=== PATIENT | male | born 1960 | race Caucasian/White ===

== ENCOUNTER 2020-08-26 10:08 | Emergency (ER) | payer MEDICARE, SELFPAY ==
[2020-08-26 10:16] VITALS: BP 151/86; PULSE 60; RESP 16; TEMP 36.6; O2SAT 98; BMI 37.1
[2020-08-26 10:19] VITALS: BP 127/85; PULSE 61; RESP 18; O2SAT 98
[2020-08-26 10:49] LABS: Basophils # 0.1 10^3/uL (0.0-0.1); Basophils % 0.7 %; Eosinophils # 0.2 10^3/uL (0.0-0.8); Eosinophils % 2.4 %; Hematocrit 46.1 % (42.0-52.0); Hemoglobin 15.9 g/dL (11.7-16.6); Lymphocytes # 1.6 10^3/uL (0.8-4.8); Lymphocytes % 20.3 %; Mean Corpuscular HGB Conc 34.5 g/dL (30.0-36.0); Mean Corpuscular Hemoglobin 32.3 pg (28.0-34.0); Mean Corpuscular Volume 93.5 fL (80-94); Mean Platelet Volume 10.1 fL (7.4-10.4); Monocytes # 0.5 10^3/uL (0.2-0.9); Monocytes % 6.6 %; Neutrophils % 69.5 %; Nucleated Red Blood Cells % 0 %; Platelet Count 224 10^3/cmm (130-400); Red Blood Count 4.93 10^6/uL (4.1-5.3); Red Cell Distribution Width 12.3 % (12.1-15.1); White Blood Count 7.6 10^3/uL (4.0-10.0)
[2020-08-26 10:54] LABS: Add Urine Microscopic? NO
[2020-08-26] MEDS: sodium chloride 0.9% 1,000 ML 999 ML IV (11:02)
[2020-08-26 11:03] LABS: Bilirubin Urine Neg (Negative); Blood Urine Neg (Negative); Glucose Urine UA Norm (Normal); Ketones Urine Negative (Negative); Leukocyte Esterase Urine Negative (Negative); Nitrate Urine Negative (Negative); Protein Urine Neg (Negative); Urine Appearance Clear (CLEAR); Urine Color Yellow (Yellow); Urobilinogen Urine Neg (Negative); pH Urine 6 (5-7)
[2020-08-26 11:17] LABS: Alanine Aminotransferase 63 U/L (0-41); Albumin Level 4.1 g/dL (3.5-5.2); Alkaline Phosphatase 88 IU/L (40-130); Anion Gap 14.3 (5-19); Aspartate Amino Transferase 33 U/L (0-40); Blood Urea Nitrogen 20 mg/dL (8-23); Calcium 9.4 mg/dL (8.5-10.5); Carbon Dioxide 26 mmol/L (22-29); Chloride 102 mmol/L (98-107); Globulin 2.7 g/dL (1.3-4.6); Glucose 177 mg/dL (65-115); Lipase 20 U/L (13-60); Osmolality Calculated 293 mOsm/kg (285-295); Potassium 4.3 mmol/L (3.5-5.1); Sodium 138 mmol/L (136-145); Total Bilirubin 0.3 mg/dL (0.15-1.2); Total Protein 6.8 g/dL (6.6-8.7)
--- NOTE | 2020-08-26 11:22 | DCPLANNER ---
wind field manager had message to schedule a follow up appointment for patient with general surgery. wind field manager called [facility], spoke with Rebekah, gave clinic patients information. wind field manager was told that patients information would be printed and reviewed. Clinic will call patient with appointment information.
[2020-08-26 11:38] VITALS: BP 163/97; PULSE 59; RESP 18; O2SAT 96
--- NOTE | 2020-08-29 06:08 | W.ED.ABDPA2 ---
HPI - Abdominal Pain General: Chief Complaint: Abdominal Pain Stated Complaint: ABDOMEN PAIN,SIDE PAIN Time Seen by Provider: 08/26/20 10:21 History of Present Illness: HPI narrative: 60-year-old male comes in complaining of enlarging umbilical hernia. He has no significant pain from it he is quite concerned because he began to notice it. He denies any nausea vomiting or diarrhea. No other symptoms. MD elicited complaint: other (Patient noted umbilical hernia seem to be enlarging) Pertinent past history: none Onset (ago): unknown Pain Consistency: other (only with manipulation of the hernia) Location: Periumbilical Severity: mild Quality: cramping Radiation: none Migration to: no migration Exacerbating factors: other (manipulation of hernia) Relieving factors: nothing Associated Symptoms: Reports GI cramping; Denies anorexia, belching, bloating, change in bowel habits, change in stool character, chills, coffee ground emesis, constipation, diarrhea, dyspepsia, dysuria, excessive flatus, fever(s), heartburn, hematochezia, hematuria, hematemesis, fecal incontinence, loose stools, melena, nausea, poor appetite, syncope and vomiting Review of Systems Const: Denies: fever(s) or chills ENMT: Denies: throat pain, ear or mastoid pain, nasal discharge or nasal congestion Card: Denies: syncope Resp: Denies: dyspnea, productive cough or non-productive cough GI: Reports: GI cramping; Denies: nausea, vomiting, hematemesis, coffee ground emesis, heartburn, diarrhea, constipation, bloating, belching, excessive flatus, fecal incontinence, change in bowel habits, change in stool character, hematochezia or melena : Denies: dysuria or hematuria Skin/Breast: Denies: rash or pruritus PFSH ED PFSH: Medical History (Updated 08/29/20 @ 06:10 by Doc Jacobo DO) ASHD (arteriosclerotic heart disease) Hepatitis C HTN (hypertension) Hyperlipidemia Hypothyroidism Surgical History (Updated 08/29/20 @ 06:10 by Doc Jacobo DO) S/P PTCA (percutaneous transluminal coronary angioplasty) Family History Other Cancer Social History Smoking and tobacco status: never smoked Physical Exam Const: COMMON NORMALS: no acute distress GENERAL APPEARANCE: cooperative and comfortable ORIENTATION/CONSCIOUSNESS: Yes awake, Yes oriented to person, Yes oriented to place and Yes oriented to time HENMT: COMMON NORMALS: normocephalic, atraumatic, hearing grossly normal bilaterally, external ears normal, EAC's normal, TM's normal bilaterally, Normal nasal mucous membranes and turbinates present, moist oral mucous membranes and oropharynx normal HEAD & SCALP: normocephalic and atraumatic NOSE: Normal nasal mucous membranes and turbinates present EXTERNAL EAR: Yes external ears normal EXTERNAL AUDITORY CANAL: EAC's normal TYMPANIC MEMBRANE: TM's normal bilaterally Neck/C-Spine: COMMON NORMALS: no JVD Lymph: LYMPHATIC: no lymphadenopathy noted and no lymphedema noted Resp: COMMON NORMALS: normal respiratory effort, No retractions, No use of accessory muscles and clear to auscultation bilaterally AUSCULTATION: clear to auscultation bilaterally Cardio: COMMON NORMALS: no JVD, regular rate, regular rhythm and No murmurs present (Cardio) RATE: regular rate RHYTHM: regular rhythm GI: COMMON NORMALS: Soft to palpation and No hepatosplenomegaly present AUSCULTATION: Yes normoactive bowel sounds PALPATION: Yes Soft to palpation, No Tenderness to palpation present (GI), No Guarding due to palpation present (GI) and Yes No hepatosplenomegaly present OTHER: Moderate sized umbilical hernia easily reduced minimal discomfort with reduction recurs with Valsalva. Questionable right inguinal hernia patient has discomfort there but I cannot palpate a hernia inguinal ring does seem to be somewhat loose but no intra-abdominal contents within the inguinal ring Extremity: COMMON NORMALS: normal to inspection, capillary refill normal, no clubbing, cyanosis or edema, no calf tenderness and no pedal edema Neuro: SENSORIUM/ORIENTATION: Yes oriented to person, Yes oriented to place and Yes oriented to time Skin: COMMON NORMALS: no rashes or lesions noted GENERAL SKIN EXAM: no rashes or lesions noted Course Vital Signs: Vital signs: Vital Signs Temperature 97.9 F 08/26/20 10:16 Pulse Rate 59 L 08/26/20 11:38 Respiratory Rate 18 08/26/20 11:38 Blood Pressure 163/97 08/26/20 11:38 Pulse Oximetry 96 08/26/20 11:38 MDM - Abdominal Pain MDM Narrative: Medical decision making narrative: Discharged home no significant exam finding. All of his discomfort resolves around the umbilical hernia which is easily reducible referred to general surgery for evaluation and possible repair electively. Lab Data: Labs: Lab Results 08/26/20 08/26/20 08/26/20 Range/Units 10:42 10:42 10:46 WBC 7.6 (4.0-10.0) 10^3/ uL RBC 4.93 (4.1-5.3) 10^6/u L Hgb 15.9 (11.7-16.6) g/dL Hct 46.1 (42.0-52.0) % MCV 93.5 (80-94) fL MCH 32.3 (28.0-34.0) pg MCHC 34.5 (30.0-36.0) g/dL RDW 12.3 (12.1-15.1) % Plt Count 224 (130-400) 10^3/c mm MPV 10.1 (7.4-10.4) fL Neut % (Auto) 69.5 % Lymph % (Auto) 20.3 % [place] % (Auto) 6.6 % Eos % (Auto) 2.4 % Baso % (Auto) 0.7 % Neut # (Auto) 5.30 (1.8-7.7) 10^3/u L Lymph # (Auto) 1.6 (0.8-4.8) 10^3/u L [place] # (Auto) 0.5 (0.2-0.9) 10^3/u L Eos # (Auto) 0.2 (0.0-0.8) 10^3/u L Baso # (Auto) 0.1 (0.0-0.1) 10^3/u L Nucleated RBC % (a uto) 0 % Nucleated RBCs # 0.0 /100WBC Sodium 138 (136-145) mmol/L Potassium 4.3 (3.5-5.1) mmol/L Chloride 102 (98-107) mmol/L Carbon Dioxide 26 (22-29) mmol/L Anion Gap 14.3 (5-19) BUN 20 (8-23) mg/dL Creatinine 1.0 (0.7-1.2) mg/dL GFR Calculation 76.0 L (90-130) mL/min Glucose 177 H (65-115) mg/dL Calculated Osmolal ity 293 (285-295) mOsm/k g Calcium 9.4 (8.5-10.5) mg/dL Total Bilirubin 0.3 (0.15-1.2) mg/dL AST 33 (0-40) U/L ALT 63 H (0-41) U/L Alkaline Phosphata se 88 (40-130) IU/L Total Protein 6.8 (6.6-8.7) g/dL Albumin 4.1 (3.5-5.2) g/dL Globulin 2.7 (1.3-4.6) g/dL Lipase 20 (13-60) U/L Urine Color Yellow (Yellow) Urine Appearance Clear (CLEAR) Urine pH 6 (5-7) Ur Specific Gravit y 1.020 (1.005-1.030) Urine Protein Neg (Negative) Urine Glucose (UA) Norm (Normal) Urine Ketones Negative (Negative) Urine Blood Neg (Negative) Urine Nitrate Negative (Negative) Urine Bilirubin Neg (Negative) Urine Urobilinogen Neg (Negative) mg/dL Ur Leukocyte Sun ase Negative (Negative) Discharge Plan Discharge Patient Disposition: Home Clinical Impression: Umbilical hernia Condition: Stable Prescriptions: No Action simvastatin 40 mg tablet 40 mg PO DAILY RF: 0 metoprolol tartrate 50 mg tablet 50 mg PO BID RF: 0 lisinopril 40 mg tablet 80 mg PO DAILY RF: 0 clopidogrel 75 mg tablet 75 mg PO DAILY RF: 0 aspirin [Aspir-81] 81 mg tablet,delayed release (DR/EC) 81 mg PO DAILY RF: 0 buspirone 15 mg tablet 7.5 mg PO BID RF: 0 levothyroxine 150 mcg capsule 150 mcg PO DAILY RF: 0 cetirizine 10 mg tablet 10 mg PO DAILY RF: 0 isosorbide mononitrate 30 mg tablet extended release 24 hr 30 mg PO DAILY Qty: 45 RF: 3 amlodipine 5 mg tablet 5 mg PO DAILY Qty: 90 RF: 3 Discharge Orders: Discharge Order (Routine); Ordered 08/26/20 Ordered By: Doc Jacobo Referrals: Leticia Zhao PA [Primary Care Provider] - Discharge Diet: Usual diet Discharge Activity: Limit activity as instructed Activity Restrictions/Additional Instructions: No lifting greater than 10 pounds. Case management will get you an appointment with surgery to evaluate your umbilical hernia and right inguinal hernia. Discharge Date/Time: 08/26/20 11:38 Coding Level of Care Code ED Street Superintendent for Blaine Vo
--- NOTE | 2020-08-30 12:59 | DCPLANNER ---
Patient has a follow up appointment scheduled for Saturday, August at 10:[address] Geronimo. Clinic will call patient with appointment information.
--- NOTE | 2020-09-08 15:02 | DCPLANNER ---
Patient had a follow up appointment scheduled for 09.05.20 with [facility] - patient did attend appointment.
== END 2020-08-26 11:38 | disposition home or self-care (01) ==
PROVIDERS: Emergency Provider Family Medicine; Family Provider Physician Assistant; PCP Physician Assistant
DX: K42.9 Umbilical hernia without obstruction or gangrene (principal); Z79.02 Long term (current) use of antithrombotics/antiplatelets; Z79.82 Long term (current) use of aspirin; Z86.19 Personal history of other infectious and parasitic diseases; I10 Essential (primary) hypertension; E78.5 Hyperlipidemia, unspecified
CPT/HCPCS: 12345; 36415; 80053; 81003; 83690; 85025; 96360; 99283; J7030

== ENCOUNTER 2020-10-03 12:40 | Emergency (ER) | payer MEDICARE, SELFPAY ==
[2020-10-03 12:59] VITALS: BP 143/102; PULSE 118; RESP 15; TEMP 36.7; O2SAT 97; BMI 33.9
[2020-10-03 13:20] LABS: ABG PCO2 36.3 mmHg (35-45); ABG PH Result 7.39 (7.35-7.45); Arterial Blood Gas Hematocrit 54.7 % (42-52); Base Excess ABG -2.7 mmol/L (-2.0-2.0); Blood Gas Allen Test Pos; Blood Gas Operator Identificat CAAK; Blood Gas Sample Site Radial, left; Blood Gas Sample Type Arterial; HCO3 ABG 21.7 mmol/L (22-26); Oxygen Device ROOM AIR; PO2 ABG 75.4 mmHg (80.0-100.0)
[2020-10-03] MEDS: sodium chloride 0.9% 1,000 ML 999 ML IV ×2 (13:28→15:01)
[2020-10-03] MEDS: insulin regular-human 100 units/1 mL 10 UNIT IVP (13:30)
--- NOTE | 2020-10-03 13:34 | W.ED.GENADLT ---
HPI - General Adult General: Chief complaint: General Medical Stated complaint: BLOOD SUGAR 700 Time Seen by Provider: 10/03/20 13:13 Source: patient Mode of arrival: ambulatory Limitations: no limitations History of Present Illness: HPI narrative: Pleasant 60-year-old male patient presents to the emergency department with elevated blood sugar. Patient reports blood sugar at [place] was over 700. Was advised to come to the emergency department for evaluation. He reports 2 to 3-day history of polyuria, polydipsia, states urination every 30 minutes and inability to quench his thirst. He reports 25 pound weight loss over the past 3 months. History of coronary artery disease, hypothyroidism. Onset (ago): day(s) (2-3) Relieving factors: none Exacerbating factors: movement Associated symptoms: Reports decreased appetite, malaise and nausea (on and off x 3 days); Deny chest pain, dyspnea, headache(s), rash, palpitations or vomiting Treatments prior to arrival: none Review of Systems General: Reports: 10 or more systems reviewed and unremarkable except in HPI and below Const: Reports: change in appetite, change in weight, fatigue and malaise; Denies: fever(s), chills or body aches Eyes: Denies: change in vision, blurry vision or eye redness ENMT: Denies: throat pain, dental pain or disequilibrium Card: Denies: chest pain, palpitations, irregular heart rhythm, swelling of feet/ankles or dyspnea on exertion Resp: Denies: dyspnea, productive cough, non-productive cough or wheezing GI: Reports: nausea (on and off x 3 days); Denies: abdominal pain or vomiting : Denies: dysuria Musc: Denies: neck pain, back pain, joint pain or muscle cramps Skin/Breast: Denies: rash or pruritus Neuro: Denies: headache(s), weakness in extremities or behavioral changes Psych: Reports: anxiety and change in appetite; Denies: depression or irritability Bao/Lymph: Denies: easy bruising [facility] ED PFSH: Medical History (Updated 10/03/20 @ 15:07 by CELSO Lacy) ASHD (arteriosclerotic heart disease) Hepatitis C HTN (hypertension) Hyperlipidemia Hypothyroidism Surgical History S/P PTCA (percutaneous transluminal coronary angioplasty) Family History Other Cancer Social History Smoking and tobacco status: never smoked Physical Exam Const: COMMON NORMALS: no acute distress, patient oriented x3, healthy appearing and alert GENERAL APPEARANCE: cooperative, comfortable and well hydrated HENMT: COMMON NORMALS: normocephalic, Normal external nose present and moist oral mucous membranes HEAD & SCALP: normocephalic NOSE: Normal external nose present Eye: COMMON NORMALS: Equal, round and reactive pupils present and EOMs intact bilaterally GENERAL EYE: appearance normal, both eyes and all related structures PUPIL: Yes Equal, round and reactive pupils present Neck/C-Spine: COMMON NORMALS: full ROM and no lymphadenopathy GENERAL: Yes normal visual inspection and Yes trachea midline CERVICAL SPINE: Yes cervical ROM normal Lymph: LYMPHATIC: no lymphadenopathy noted Chest: COMMONS NORMALS: normal inspection of the chest Resp: COMMON NORMALS: normal respiratory effort, No use of accessory muscles and clear to auscultation bilaterally EFFORT & INSPECTION: Yes able to speak in complete sentences AUSCULTATION: clear to auscultation bilaterally Cardio: COMMON NORMALS: regular rhythm, S1 normal heart sound present, S2 normal heart sound present and Peripheral pulses 2+ throughout RHYTHM: regular rhythm HEART SOUNDS: S1 normal heart sound present and S2 normal heart sound present PERIPHERAL PULSES: Peripheral pulses 2+ throughout GI: COMMON NORMALS: Normal to inspection, nondistended, normoactive bowel sounds present, Soft to palpation and non-tender INSPECTION: Yes normal to inspection PALPATION: Yes Soft to palpation : COMMON NORMALS: Yes no CVA tenderness BLADDER/KIDNEY EXAM: Yes no CVA tenderness Back/Pelvis: COMMON NORMALS: no CVA tenderness, thoracic and lumbar spine normal to inspection and no thoracic nor lumbar tenderness Extremity: COMMON NORMALS: normal to inspection and capillary refill normal Neuro: COMMON NORMALS: patient oriented x3 and no focal motor deficits SENSORIUM/ORIENTATION: Yes alert Psych: COMMON NORMALS: mental status grossly normal, Normal thought process present and cooperative ACTIVITY/MOTOR BEHAVIOR: Yes appropriate eye contact THOUGHT PROCESS: Normal thought process present Skin: COMMON NORMALS: no rashes or lesions noted and turgor normal GENERAL SKIN EXAM: no rashes or lesions noted and turgor normal Course ED course: 60-year-old male patient with new onset diabetes presents to the emergency department with blood sugar elevation. Positive serum ketones, blood sugar 591, patient received insulin, 10 units IVP with reduction of glucose to 386. ABG without acidosis. Case discussed with Dr. Brito, will discharge patient home on metformin with appropriate follow-up with his primary care provider in 1 week. He was prescribed glucometer for home monitoring readings. Diabetic diet and diabetic care discussed, 10 minutes of counseling provided. Agrees to return to the emergency department if he develops confusion, abdominal pain or neurological symptoms. Verbalizes understanding, results were discussed and questions were answered. Vital Signs: Vital signs: Vital Signs Temperature 98.0 F 10/03/20 12:59 Pulse Rate 82 10/03/20 16:05 Respiratory Rate 15 10/03/20 12:59 Blood Pressure 158/112 10/03/20 16:05 Pulse Oximetry 97 10/03/20 16:05 MDM - General Adult Lab Data: Labs: Lab Results 10/03/20 10/03/20 10/03/20 Range/Units 13:09 13:20 13:20 WBC 8.8 (4.0-10.0) 10^3/ uL RBC 5.56 H (4.1-5.3) 10^6/u L Hgb 17.6 H (11.7-16.6) g/dL Hct 50.0 (42.0-52.0) % MCV 89.9 (80-94) fL MCH 31.7 (28.0-34.0) pg MCHC 35.2 (30.0-36.0) g/dL RDW 11.7 L (12.1-15.1) % Plt Count 313 (130-400) 10^3/c mm MPV 11.3 H (7.4-10.4) fL Neut % (Auto) 72.2 % Lymph % (Auto) 18.4 % [place] % (Auto) 5.8 % Eos % (Auto) 2.4 % Baso % (Auto) 0.7 % Neut # (Auto) 6.38 (1.8-7.7) 10^3/u L Lymph # (Auto) 1.6 (0.8-4.8) 10^3/u L [place] # (Auto) 0.5 (0.2-0.9) 10^3/u L Eos # (Auto) 0.2 (0.0-0.8) 10^3/u L Baso # (Auto) 0.1 (0.0-0.1) 10^3/u L Nucleated RBC % (a uto) 0 % Nucleated RBCs # 0.0 /100WBC Specimen Type Arterial Sample Site Radial, left ABG pH 7.39 (7.35-7.45) ABG pCO2 36.3 (35-45) mmHg ABG pO2 75.4 L (80.0-100.0) mmH g ABG HCO3 21.7 L (22-26) mmol/L ABG Base Excess -2.7 L (-2.0-2.0) mmol/ L [employer]iste[employer] Test Pos Hematocrit 54.7 H (42-52) % O2 Delivery Device Room air Fabric Designer ID [place] Sodium 132 L (136-145) mmol/L Potassium 4.6 (3.5-5.1) mmol/L Chloride 91 L (98-107) mmol/L Carbon Dioxide 24 (22-29) mmol/L Anion Gap 21.6 H (5-19) BUN 26 H (8-23) mg/dL Creatinine 1.3 H (0.7-1.2) mg/dL GFR Calculation 56.1 L (90-130) mL/min Glucose 591 H* (65-115) mg/dL POC Glucose (70-110) mg/dL Calculated Osmolal ity 306 H (285-295) mOsm/k g Calcium 10.9 H (8.5-10.5) mg/dL Total Bilirubin 0.4 (0.15-1.2) mg/dL AST 26 (0-40) U/L ALT 72 H (0-41) U/L Alkaline Phosphata se 150 H (40-130) IU/L Total Protein 8.1 (6.6-8.7) g/dL Albumin 4.8 (3.5-5.2) g/dL Globulin 3.3 (1.3-4.6) g/dL Serum Ketones Positive H (Negative) 10/03/20 10/03/20 Range/Units 14:31 15:55 WBC (4.0-10.0) 10^3/ uL RBC (4.1-5.3) 10^6/u L Hgb (11.7-16.6) g/dL Hct (42.0-52.0) % MCV (80-94) fL MCH (28.0-34.0) pg MCHC (30.0-36.0) g/dL RDW (12.1-15.1) % Plt Count (130-400) 10^3/c mm MPV (7.4-10.4) fL Neut % (Auto) % Lymph % (Auto) % [place] % (Auto) % Eos % (Auto) % Baso % (Auto) % Neut # (Auto) (1.8-7.7) 10^3/u L Lymph # (Auto) (0.8-4.8) 10^3/u L [place] # (Auto) (0.2-0.9) 10^3/u L Eos # (Auto) (0.0-0.8) 10^3/u L Baso # (Auto) (0.0-0.1) 10^3/u L Nucleated RBC % (a uto) % Nucleated RBCs # /100WBC Specimen Type Sample Site ABG pH (7.35-7.45) ABG pCO2 (35-45) mmHg ABG pO2 (80.0-100.0) mmH g ABG HCO3 (22-26) mmol/L ABG Base Excess (-2.0-2.0) mmol/ L Aristeo Test Hematocrit (42-52) % O2 Delivery Device Fabric Designer ID Sodium (136-145) mmol/L Potassium (3.5-5.1) mmol/L Chloride (98-107) mmol/L Carbon Dioxide (22-29) mmol/L Anion Gap (5-19) BUN (8-23) mg/dL Creatinine (0.7-1.2) mg/dL GFR Calculation (90-130) mL/min Glucose (65-115) mg/dL POC Glucose 386 314 (70-110) mg/dL Calculated Osmolal ity (285-295) mOsm/k g Calcium (8.5-10.5) mg/dL Total Bilirubin (0.15-1.2) mg/dL AST (0-40) U/L ALT (0-41) U/L Alkaline Phosphata se (40-130) IU/L Total Protein (6.6-8.7) g/dL Albumin (3.5-5.2) g/dL Globulin (1.3-4.6) g/dL Serum Ketones (Negative) Discharge Plan Discharge Patient Disposition: Home Clinical Impression: Acute hyperglycemia Diabetes mellitus Qualifiers: Diabetes mellitus type: type 2 Diabetes mellitus superintendent container terminal insulin use: without superintendent container terminal use Diabetes mellitus complication status: with ketoacidosis Diabetes mellitus complication detail: without coma Qualified Code(s): E11.10 - Type 2 diabetes mellitus with ketoacidosis without coma Condition: Stable Prescriptions: New metformin 500 mg tablet 500 mg PO BID Qty: 30 RF: 0 No Action esomeprazole magnesium 20 mg capsule,delayed release(DR/EC) 20 mg PO DAILY RF: 0 tamsulosin [Flomax] 0.4 mg capsule 0.4 mg PO DAILY RF: 0 nitroglycerin [Nitrostat] 0.4 mg tablet, sublingual 0.4 mg SUBLINGUAL Q5M PRN (Reason: CHEST PAINS) RF: 0 sildenafil 50 mg tablet 50 mg PO DAILY PRN (Reason: ERECTILE DISFUNCTION) RF: 0 simvastatin 40 mg tablet 40 mg PO DAILY RF: 0 metoprolol tartrate 50 mg tablet 50 mg PO BID RF: 0 lisinopril 40 mg tablet 80 mg PO DAILY RF: 0 aspirin [Aspir-81] 81 mg tablet,delayed release (DR/EC) 81 mg PO DAILY RF: 0 levothyroxine 150 mcg capsule 150 mcg PO DAILY RF: 0 isosorbide mononitrate 30 mg tablet extended release 24 hr 30 mg PO DAILY Qty: 45 RF: 3 amlodipine 5 mg tablet 5 mg PO DAILY Qty: 90 RF: 3 Discharge Orders: Discharge Order (Routine); Ordered 10/03/20 Ordered By: Malena Thorne Discharge Diet: Diabetic Discharge Activity: Resume usual activity Patient Instructions: How to Check Your Blood Sugar (ED), Diabetic Ketoacidosis (ED), Diabetic Foot Care (ED), Diabetes Mellitus Type 2 in Adults (ED), Meal Planning with Diabetes Exchanges (GEN), Diabetic Hyperglycemia (ED) Activity Restrictions/Additional Instructions: Prescription has been provided for glucometer with strips controls and lancets, record your blood sugars and take to your primary care provider next week You will need to follow-up with your primary care provider in 1 week, please call and schedule an appointment for follow-up Return to the emergency department if you develop chest pain, shortness of breath or abdominal pain, please be compliant with diabetic diet as this is a necessity for glucose control. Avoid sugary foods, fruits, and other hidden sugars Coding Level of Care Code ED Fundraising Assistant for Chg Fwd Exam Comprehensive
[2020-10-03 13:43] LABS: Basophils # 0.1 10^3/uL (0.0-0.1); Basophils % 0.7 %; Eosinophils # 0.2 10^3/uL (0.0-0.8); Eosinophils % 2.4 %; Hemoglobin 17.6 g/dL (11.7-16.6); Lymphocytes # 1.6 10^3/uL (0.8-4.8); Lymphocytes % 18.4 %; Mean Corpuscular HGB Conc 35.2 g/dL (30.0-36.0); Mean Corpuscular Hemoglobin 31.7 pg (28.0-34.0); Mean Corpuscular Volume 89.9 fL (80-94); Mean Platelet Volume 11.3 fL (7.4-10.4); Monocytes # 0.5 10^3/uL (0.2-0.9); Monocytes % 5.8 %; Neutrophils # 6.38 10^3/uL (1.8-7.7); Neutrophils % 72.2 %; Nucleated Red Blood Cells % 0 %; Platelet Count 313 10^3/cmm (130-400); Red Blood Count 5.56 10^6/uL (4.1-5.3); Red Cell Distribution Width 11.7 % (12.1-15.1); White Blood Count 8.8 10^3/uL (4.0-10.0)
[2020-10-03 14:03] LABS: Alanine Aminotransferase 72 U/L (0-41); Albumin Level 4.8 g/dL (3.5-5.2); Alkaline Phosphatase 150 IU/L (40-130); Anion Gap 21.6 (5-19); Aspartate Amino Transferase 26 U/L (0-40); Blood Urea Nitrogen 26 mg/dL (8-23); Calcium 10.9 mg/dL (8.5-10.5); Carbon Dioxide 24 mmol/L (22-29); Chloride 91 mmol/L (98-107); Globulin 3.3 g/dL (1.3-4.6); Glomerular Filtration Rate 56.1 mL/min (90-130); Osmolality Calculated 306 mOsm/kg (285-295); Potassium 4.6 mmol/L (3.5-5.1); Sodium 132 mmol/L (136-145); Total Bilirubin 0.4 mg/dL (0.15-1.2); Total Protein 8.1 g/dL (6.6-8.7)
[2020-10-03 14:16] LABS: Glucose 591 mg/dL (65-115)
[2020-10-03 14:35] LABS: Glucose Point of Care 386 mg/dL (70-110)
[2020-10-03 14:48] LABS: Ketone (Acetest) Serum Positive (Negative)
[2020-10-03 15:02] VITALS: BP 158/112; PULSE 84; O2SAT 97
[2020-10-03 16:04] LABS: Glucose Point of Care 314 mg/dL (70-110)
[2020-10-03 16:05] VITALS: BP 158/112; PULSE 82; O2SAT 97
== END 2020-10-03 16:08 | disposition home or self-care (01) ==
PROVIDERS: Emergency Medicine; Emergency Provider Nurse Practitioner Family
DX: E11.10 Type 2 diabetes mellitus with ketoacidosis without coma (principal); Z79.82 Long term (current) use of aspirin; Z86.19 Personal history of other infectious and parasitic diseases; I10 Essential (primary) hypertension; E78.5 Hyperlipidemia, unspecified
CPT/HCPCS: 12345; 36416; 36600; 80053; 82009; 82803; 82962; 85025; 96361; 96374; 99282; 99283; J1815; J7030

== ENCOUNTER 2021-01-03 11:03 | Outpatient (CLI) | payer MEDICARE, SELFPAY ==
[2021-01-03 12:51] LABS: Blood Urea Nitrogen 14 mg/dL (8-23); Glomerular Filtration Rate 98.3 mL/min (90-130)
--- NOTE | 2021-01-03 13:00 | CT_ITS ---
WS: [id number] CT ABDOMEN PELVIS TECHNIQUE: Contrast-enhanced CT of the abdomen and pelvis with coronal and sagittal reformatted image s. CLINICAL INFORMATION: R10.9 - Unspecified abdominal pain COMPARISON: September 17, 2018 DLP: 1768.[address] scans at [facility] use at least one of these dose optimization techniques: automat ed exposure control; mA and/or kV adjustment per patient size (includes targeted exams where dose is matched to clinical indication); or iterative reconstruction. FINDINGS: Hepatomegaly. Diffuse fatty infiltration liver. Normal portal vein and splenic vein. Calcified granul omas in the lung bases. Mild fatty atrophy of the pancreas. Normal spleen. Normal GE junction. Adrena l glands are normal. Normal renal parenchymal enhancement. No hydronephrosis. Normal caliber abdomina l aorta. Mild aortic calcification. 15 mm exophytic left renal cyst. Normal sigmoid colon. No evidence of high-grade small or large bowel obstruction. No bowel distention . Fat-containing umbilical hernia. Normal appendix. No abdominal or pelvic lymphadenopathy. CT/CT abdomen pelvis w con* [id number] IMPRESSION: 1. No acute abdominal or pelvic findings. 2. Hepatomegaly with diffuse fatty infiltration of the liver. 3. Normal sigmoid colon. No evidence of small or large bowel obstruction. 4. No adenopathy in the abdomen or pelvis. 5. Fat-containing umbilical hernia. No herniated bowel. This is similar in [place] to 2018. 6. No other significant findings.
[2021-01-03] MEDS: iohexol 300 mg/mL 100 mL Btl IV (13:31)
[2021-01-03] MEDS: iohexol 300 mg/mL 50 mL Btl IV (13:41)
== END 2021-01-03 11:04 | disposition home or self-care (01) ==
PROVIDERS: PCP Nurse Practitioner Family; Visit Provider Surgery
DX: R10.9 Unspecified abdominal pain (principal); K42.9 Umbilical hernia without obstruction or gangrene; R16.0 Hepatomegaly, not elsewhere classified; K76.0 Fatty (change of) liver, not elsewhere classified
CPT/HCPCS: 74177; 82565; 84520

== ENCOUNTER → 2021-07-25 09:24 | Outpatient (BNVA) | payer MEDICARE, SELFPAY | PROVIDERS: PCP Nurse Practitioner Family; Visit Provider Podiatrist Foot & Ankle Surgery | DX: M79.673 Pain in unspecified foot (principal) | CPT/HCPCS: 73630 ==

== ENCOUNTER → 2021-09-01 09:35 | Outpatient (BNVA) | payer MEDICARE, SELFPAY | PROVIDERS: PCP Nurse Practitioner Family; Visit Provider Surgery | DX: Z20.822 Contact with and (suspected) exposure to COVID-19 (principal) | CPT/HCPCS: 87635 ==

== ENCOUNTER 2021-09-05 09:37 | Day surgery (SDC) | payer MEDICARE, SELFPAY ==
[2021-09-04 09:38] VITALS: BMI 35.6
[2021-09-05] VITALS (16 sets, daily range): BP systolic 120–168; BP diastolic 67–101; PULSE 58–78; RESP 13–26; TEMP 36–37.3; O2SAT 90–97
--- NOTE | 2021-09-05 10:02 | ECG_ITS ---
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 Measurements Intervals [employer] Rate: 57 P: 58 NM: 172 QRS: 36 QRSD: 80 T: 35 QT: 407 QTc: 398 Interpretive Statements SINUS BRADYCARDIA Compared to ECG 09/23/2018 12:18:26 No significant changes Electronically Signed On 09-05-2021 23:31:57 CDT by Patrick Alba M.D. [id number]
[2021-09-05 10:14] LABS: Glucose Point of Care 132 mg/dL (70-110)
[2021-09-05] MEDS: sodium chloride 0.9% 1,000 ML 30 ML IV (10:17)
[2021-09-05] MEDS: acetaminophen 1,000 MG/100 ML PIGGYBACK 400 MG IV (10:18)
[2021-09-05] MEDS: heparin 5,000 unit/mL INJ 1 mL 3000 UNIT SUBCUT (10:19)
[2021-09-05 10:34] LABS: Basophils % 0.6 %; Eosinophils # 0.2 10^3/uL (0.0-0.8); Eosinophils % 3.7 %; Hematocrit 43.6 % (42.0-52.0); Hemoglobin 14.8 g/dL (11.7-16.6); Lymphocytes # 1.4 10^3/uL (0.8-4.8); Lymphocytes % 21.8 %; Mean Corpuscular HGB Conc 33.9 g/dL (30.0-36.0); Mean Corpuscular Volume 94.2 fl (80-94); Mean Platelet Volume 10.4 fL (7.4-10.4); Monocytes # 0.5 10^3/uL (0.2-0.9); Monocytes % 7.9 %; Neutrophils % 65.5 %; Nucleated Red Blood Cells % 0 %; Platelet Count 196 10^3/cmm (130-400); Red Blood Count 4.63 10^6/uL (4.1-5.3); Red Cell Distribution Width 12.4 % (12.1-15.1); White Blood Count 6.4 10^3/uL (4.0-10.0)
--- NOTE | 2021-09-05 10:40 | ANES.PREANE2 ---
Pre-Anesthetic Assessment Pre-Anesthetic Assessment: Height/Weight: Height 1.83 m Weight 119.295 kg Temp Pulse Resp BP Pulse Ox 96.9 F L 58 L 18 168/101 96 09/05/21 09:45 09/05/21 09:45 09/05/21 09:45 09/05/21 09:45 09/05/21 09:45 Preop Diagnosis: Umbilical hernia Proposed Procedure: Operation Date: 09/05/21 10:50 Proposed Procedures p Umbilical Hernia Repair w/ Mesh 56243 K42.9(Not Applicable) - Vinay Geronimo MD Was Beta Rob taken within 24 hours: Yes Was Clonidine taken within 24 hours: N/A Last intake: Intake Last Liquid Date 09/04/21 Last Liquid Time 22:00 Last Solid Date 09/04/21 Last Solid Time 22:00 Social: Social History: No tobacco Exam: Pre-Anes Outpt Exam: alert, oriented x 3, clear to auscultation bilaterally and regular rate & rhythm Airway: Submandibular: WNL Cervical ROM: WNL MP: 2 Dentition: False Additional comments: Full dentures History/ROS: No significant complaints CV/HEM: CV/HEM: CAD and HTN Comments: Stent placed several years ago. Doing well. EF > 55%. Hepatic: Hepatic: Hepatitis (Chronic Hepatits C) GI: GI: GERD (Well controlled) Metabolic: Metabolic: Hyperlipidemia and Morbid obesity Anesthetic Plan: ASA status: 3 Anesthesia: Anesthesia Evaluation and General Risk of > 500 ml blood loss (7ml/kg in children): No Meds/Allergies Current Medications: Current Medications Generic Name Dose Route Start Last Admin Trade Name Freq PRN Reason Stop Dose Admin Sodium Chloride 1,000 mls @ 30 ml s/hr 09/05/21 09:45 09/05/21 10:17 Sodium Chloride 0.9% IV 09/06/21 09:44 30 mls/hr .Q24H JOAQUÍN Administration PFSH Anesthesia PFSH: Medical History ASHD (arteriosclerotic heart disease) Hepatitis C HTN (hypertension) Hyperlipidemia Hypothyroidism Surgical History S/P PTCA (percutaneous transluminal coronary angioplasty) Family History Other Cancer Data Anesthesia CBC & Chem 7: 09/05/21 10:08 Other Labs: Laboratory Results - last 48 hr 09/05/21 09/05/21 10:08 10:09 WBC 6.4 RBC 4.63 Hgb 14.8 Hct 43.6 MCV 94.2 H MCH 32.0 MCHC 33.9 RDW 12.4 Plt Count 196 MPV 10.4 Neut % (Auto) 65.5 Lymph % (Auto) 21.8 [place] % (Auto) 7.9 Eos % (Auto) 3.7 Baso % (Auto) 0.6 Neut # (Auto) 4.20 Lymph # (Auto) 1.4 [place] # (Auto) 0.5 Eos # (Auto) 0.2 Baso # (Auto) 0.0 Nucleated RBC % (auto) 0 Nucleated RBCs # 0.0 POC Glucose 132 H Cardiac Studies: No Data to Display
--- NOTE | 2021-09-05 11:55 | P.HP_ITS ---
Same Day Surgery H&P Indication for Procedure/HPI DATE OF PROCEDURE: September 05, 2021 CHIEF COMPLAINT/INDICATIONFOR SURGICAL PROCEDURE: Have a bellybutton hernia PREOP DIAGNOSIS: Umbilical hernia PLANNED PROCEDRUE: Operation Date: 09/05/21 10:50 Proposed Procedures p Umbilical Hernia Repair w/ Mesh 96248 K42.9(Not Applicable) - Vinay Geronimo MD 09/08/2020 This is 60 years old gentleman presents to my practice is being referred for his umbilical hernia and patient has been complaining of a right groin bulge according to his description that he has been pushing it back and forth, he has been complaining of both hernias for many years and he never had surgical consultation to fix it. There is no available CT scan or recent images done for that purpose. Patient was seen recently in the emergency department for his umbilical hernia and his concerns about the right groin hernia. And during that examination the right groin was not appreciated clinically to have any hernias. Interval history 08/24/2021 Patient deferred surgical intervention before for his umbilical hernia and today he comes back to my practice with concerns his hernia starts to bother him more. And he is ready for surgical intervention. His current weight to 63 pounds and a BMI of 35.6. A CT scan was obtained back in December 2020 one of the abdomen and pelvis and showed 1. No acute abdominal or pelvic findings. 2. Hepatomegaly with diffuse fatty infiltration of the liver. 3. Normal sigmoid colon. No evidence of small or large bowel obstruction. 4. No adenopathy in the abdomen or pelvis. 5. Fat-containing umbilical hernia. No herniated bowel. This is similar in appearance to 2018. 6. No other significant findings. Interim history 09/05/2021 Patient comes today for open umbilical hernia repair with possible mesh placement ROS All systems have been reviewed negative except as per the above or per problem list Medications/Allergies* Home Medications Medication Instructions Recorded Confirmed Type aspirin 81 mg tablet,delayed 81 mg PO DAILY 04/28/20 09/05/21 History release levothyroxine 150 mcg capsule 175 mcg PO DAILY 04/28/20 09/05/21 History lisinopril 40 mg tablet 80 mg PO DAILY tab 04/28/20 09/05/21 History metoprolol tartrate 50 mg tablet 50 mg PO BID 04/28/20 09/05/21 History simvastatin 40 mg tablet 40 mg PO DAILY 04/28/20 09/05/21 History nitroglycerin 0.4 mg sublingual 0.4 mg SUBLINGUAL Q5M PRN 09/08/20 09/04/21 History tablet sildenafil 50 mg tablet 50 mg PO DAILY PRN 09/08/20 09/05/21 History tamsulosin 0.4 mg capsule 0.4 mg PO DAILY 09/08/20 09/05/21 History montelukast 10 mg PO DAILY 09/04/21 09/05/21 History sertraline [Zoloft] 50 mg PO DAILY 09/04/21 09/05/21 History Allergies/Adverse Reactions Allergy/AdvReac Type Severity Reaction Status Date / Time No Known Allergies Allergy Verified 08/25/21 16:00 Current Medications: Generic Name Dose Route Start Last Admin Trade Name Freq PRN Reason Stop Dose Admin Sodium Chloride 1,000 mls @ 30 mls/hr 09/05/21 09:45 09/05/21 10:17 Sodium Chloride 0.9% IV 09/06/21 09:44 30 mls/hr .Q24H JOAQUÍN Administration Pertinent History/Comorbid Conditions* Medical History (Updated 08/25/21 @ 16:01 by Vinay Geronimo MD) ASHD (arteriosclerotic heart disease) Hepatitis C HTN (hypertension) Hyperlipidemia Hypothyroidism Surgical History (Updated 08/29/20 @ 06:10 by Doc Jacobo DO) S/P PTCA (percutaneous transluminal coronary angioplasty) Family History (Updated 04/28/20 @ 16:35 by Rubina Burris RN) Cancer Pertinent Exam Findings alert, oriented x 3, clear to auscultation bilaterally, regular rate & rhythm and procedure specific exam findings (Abdominal examination shows chronically incarcerated umbilical hernia ) Abdominal examination nontender nondistended soft, obese Recommendations Surgery/Procedure today (Open umbilical hernia repair with possible mesh placement.) Coding Level of Care Code Acute Delivery Manager for Blaine Vo
[2021-09-05] MEDS: lidocaine 2% INJ 20 mL INJECTION (12:31)
--- NOTE | 2021-09-05 13:14 | P.OP_ITS ---
Operative Report Date of procedure: September 05, 2021 Pre-op Diagnosis: Umbilical hernia Post-op diagnosis: same Post-op Findings: Fascial defect about 1 inch and a half in diameter Viable omental content Procedure Done: Open umbilical hernia repair with mesh placement polypropylene 5 x 10 cm Implants: mesh placement polypropylene 5 x 10 cm Specimens removed/disposition: Hernia sac and contents Surgeon: Vinay Geronimo Automatic Furnace Operator: Surgical techsophia Luciano and astro technician student Jamia Peters Circulating nurse Nelsy Pathak Anesthesia: General (GET[employer]ER Ana) Estimated blood loss (mL): 15 Condition: stable Disposition: same day Brief History: Symptomatic umbilical hernia Procedure: Patient was identified in holding area and the site of the hernia was marked by me ,Patient was brought then to the operating room, general end otracheal anesthesia was administered by the anesthesia provider.prophylactic IV antibiotics were given per protocol Time-out was done verifying the patient's name/date of /planned procedure and destination after the procedure, all were in agreement. SCDs confirmed to be functioning, preoperative antibiotics administered per protocol, and beta livan protocol was confirmed. Prep and drape of the abdomen was done under the usual sterile technique. I started by infraumbilical skin incision,.I was able to identify the umbilical hernial sac and the sac was opened and showed viable omentum that was reduced safely to the abdominal cavity.Dissection was carried all the way down to the fascia. I was able to free the overlying fat on top of the fascia, facilitate primary closure At that point the fascial defect was about inch in diameter and a half, after freeing all the adhesions, under direct visualization I was able to use #1 PDS to repair the defect primarily, as an interrupted horizontal mattress sutures, thorough irrigation of the wound was then achieved and hemostasis. A piece of polypropylene mesh was placed as an onlay and interrupted 2-0 silk sutures were applied to anchor the mesh to the underlying fascia. Followed by 2-0 Vicryl for deep subdermal continuous suture, followed by 3-0 Vicryl, then 4-0 Monocryl was used for subcuticular closure of the skin incision. Lidocaine 2% was used for local infiltration to help postoperative pain Dermabond was then applied followed by an abdominal binder Counts of sponges and instruments were completed at the end of the procedure Patient tolerated the procedure well and was taken to the recovery area in stable condition I was present for the whole entire procedure
[2021-09-05] MEDS: fentaNYL 50 mcg/mL INJ 2mL IVP (13:59)
[2021-09-05] MEDS: HYDROmorphone 1 mg/mL INJ 1 mL 0.5 MG IVP (14:11)
[2021-09-05] MEDS: HYDROcodone-acetaminophen 5-325 mg Tablet 1 TAB PO (14:55)
--- NOTE | 2021-09-05 16:16 | ANE.PACU2 ---
Inpatient post-anesthesia follow up: Airway intact: Yes Vital signs: Temperature 96.8 F Pulse Rate 67 Respiratory Rate 19 Blood Pressure 135/94 Pulse Oximetry 96 Oxygen Delivery Me thod Room Air Oxygen Flow Rate 2 Fraction of Inspir ed Oxygen Hydration adequate: Yes Nausea and vomiting: No Pain level: 3 Mental status: Baseline
== END 2021-09-05 15:13 | disposition home or self-care (01) ==
PROVIDERS: Anesthesiology; PCP Nurse Practitioner Family; Visit Provider Surgery
PROC: (CPT 49587; principal; 2021-09-05 10:40)
DX: K42.0 Umbilical hernia with obstruction, without gangrene (principal); E66.01 Morbid (severe) obesity due to excess calories; Z68.35 Body mass index [BMI] 35.0-35.9, adult; I10 Essential (primary) hypertension; E78.5 Hyperlipidemia, unspecified; E03.9 Hypothyroidism, unspecified; I25.10 Atherosclerotic heart disease of native coronary artery without angina pectoris; B18.2 Chronic viral hepatitis C; Z95.5 Presence of coronary angioplasty implant and graft; Z79.82 Long term (current) use of aspirin
CPT/HCPCS: 49587; 36416; 82962; 85025; 88302; 93005; C1781; J0690; J1170; J1644; J2250; J2704; J3010; J3490; J7030

== ENCOUNTER 2022-03-31 08:59 | Emergency (ER) | payer MEDICARE, SELFPAY ==
--- NOTE | 2022-03-31 09:00 | ECG_ITS ---
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 Measurements Intervals [place] Rate: 72 P: 56 FL: 168 QRS: 38 QRSD: 90 T: 28 QT: 355 QTc: 389 Interpretive Statements SINUS RHYTHM Compared to ECG 09/05/2021 10:18:25 Sinus bradycardia no longer present Electronically Signed On 03-31-2022 12:59:18 CDT by Patrick Alba M.D. [id number]
--- NOTE | 2022-03-31 09:00 | XRR_ITS ---
PROCEDURE INFORMATION: Exam: XR Chest Exam date and time: 03/31/2022 9:27 AM Age: 61 years old Clinical indication: Pain; Chest pressure; Prior surgery; Surgery type: Stents; Additional info: Cp TECHNIQUE: Imaging protocol: XR of the chest. Views: 1 view. Total images: 2370 COMPARISON: CR XR chest 2V* [id number] 03/30/2022 9:33 AM FINDINGS: Lungs: Benign granulomatous disease of the lung is noted. Pleural spaces: Unremarkable. No pleural effusion. No pneumothorax. Heart/Mediastinum: Unremarkable. No cardiomegaly. Bones/joints: Spinal degenerative changes are evident. XR/XR chest 1V portable [id number] IMPRESSION: No acute cardiopulmonary process.
[2022-03-31 09:05] VITALS: BP 196/103; PULSE 76; RESP 16; TEMP 36.4; O2SAT 95; BMI 33.9
--- NOTE | 2022-03-31 09:18 | ED_ITS ---
HPI - Chest Pain General: Chief Complaint: Chest Pain Stated Complaint: Chest Pains Time Seen by Provider: 03/31/22 09:00 Source: patient Mode of arrival: ambulatory Limitations: no limitations History of Present Illness: 61-year-old male who states that over the last 2 weeks he has been having chronic chest pain with some left arm pain. He states that pain is been sharp in nature he is also had a cough over that time denies any shortness of breath he states that he had been seen by Juan Espinal ye sterday had an x-ray that was normal he denies any worsening improving factors. Associated symptoms: Deny abdominal pain, fever(s), nausea or vomiting Review of Systems Const: Denies: fever(s), chills, body aches or change in appetite Eyes: Denies: blurry vision or eye discomfort ENMT: Denies: throat pain or dental pain Card: Reports: chest pain Resp: Reports: non-productive cough GI: Denies: abdominal pain, nausea, vomiting or diarrhea : Denies: dysuria Musc: Denies: neck pain or back pain Skin/Breast: Denies: rash Neuro: Denies: headache(s) Psych: Denies: depression Bao/Lymph: Denies: easy bruising All/Imm: Denies: urticaria PFSH ED PFSH: Medical History ASHD (arteriosclerotic heart disease) Hepatitis C HTN (hypertension) Hyperlipidemia Hypothyroidism Umbilical hernia Surgical History S/P PTCA (percutaneous transluminal coronary angioplasty) Family History Other Cancer Social History Smoking and tobacco status: never smoked Physical Exam Const: COMMON NORMALS: no acute distress, patient oriented x3 and healthy appearing HENMT: COMMON NORMALS: normocephalic and atraumatic HEAD & SCALP: normocephalic and atraumatic Eye: COMMON NORMALS: Equal, round and reactive pupils present and EOMs intact bilaterally PUPIL: Yes Equal, round and reactive pupils present Neck/C-Spine: COMMON NORMALS: full ROM and supple Chest: COMMONS NORMALS: normal inspection of the chest and normal palpation of entire chest wall Resp: COMMON NORMALS: normal respiratory effort, No retractions, No use of accessory muscles and clear to auscultation bilaterally AUSCULTATION: clear to auscultation bilaterally Cardio: COMMON NORMALS: regular rate, regular rhythm and No murmurs present (Cardio) RATE: regular rate RHYTHM: regular rhythm GI: COMMON NORMALS: Normal to inspection, nondistended, normoactive bowel sounds present, Soft to palpation, non-tender and no masses PALPATION: Yes Soft to palpation Extremity: COMMON NORMALS: normal to inspection and full ROM Neuro: COMMON NORMALS: patient oriented x3, moves all extremities and no focal motor deficits Psych: COMMON NORMALS: mental status grossly normal, Normal thought process present and cooperative THOUGHT PROCESS: Normal thought process present Skin: COMMON NORMALS: no rashes or lesions noted and no wounds GENERAL SKIN EXAM: no rashes or lesions noted Course Vital Signs: Vital signs: Vital Signs Temperature 97.6 F 03/31/22 09:05 Pulse Rate 78 03/31/22 12:30 Respiratory Rate 23 H 03/31/22 12:30 Blood Pressure 161/79 03/31/22 12:30 Pulse Oximetry 98 03/31/22 12:30 MDM - Chest Pain Medical Decision Making Patient presents for chest pain is been going on for weeks initial repeat troponins are both negative D-dimer is negative as well. His pain here is improved he is stable for discharge and is to follow-up with cardiology outpatient return if worsening he understands agrees to plan. Differential Diagnosis Likely sudden cardiac Lab Data : 03/31/22 09:20 03/31/22 09:20 Radiology Impressions Chest X-Ray 03/31/22 09:00 IMPRESSION: No acute cardiopulmonary process. Laboratory Results WBC 10.6 10^3/uL (4.0-10.0) H 03/31/22 09:20 RBC 4.89 10^6/uL (4.1-5.3) 03/31/22 09:20 Hgb 15.9 g/dL (11.7-16.6) 03/31/22 09:20 Hct 44.7 % (42.0-52.0) 03/31/22 09:20 MCV 91.4 fl (80-94) 03/31/22 09:20 MCH 32.5 pg (28.0-34.0) 03/31/22 09:20 MCHC 35.6 g/dL (30.0-36.0) 03/31/22 09:20 RDW 12.3 % (12.1-15.1) 03/31/22 09:20 Plt Count 208 10^3/cmm (130-400) 03/31/22 09:20 MPV 10.2 fL (7.4-10.4) 03/31/22 09:20 Neut % (Auto) 80.9 % 03/31/22 09:20 Lymph % (Auto) 12.3 % 03/31/22 09:20 [place] % (Auto) 5.3 % 03/31/22 09:20 Eos % (Auto) 0.4 % 03/31/22 09:20 Baso % (Auto) 0.3 % 03/31/22 09:20 Neut # (Auto) 8.54 10^3/uL (1.8-7.7) H 03/31/22 09:20 Lymph # (Auto) 1.3 10^3/uL (0.8-4.8) 03/31/22 09:20 [place] # (Auto) 0.6 10^3/uL (0.2-0.9) 03/31/22 09:20 Eos # (Auto) 0.0 10^3/uL (0.0-0.8) 03/31/22 09:20 Baso # (Auto) 0.0 10^3/uL (0.0-0.1) 03/31/22 09:20 Nucleated RBC % (auto) 0 % 03/31/22 09:20 Nucleated RBCs # 0.0 /100WBC 03/31/22 09:20 D-Dimer 0.39 ug/mIFEU (0-0.59) 03/31/22 09:20 Sodium 139 mmol/L (136-145) 03/31/22 09:20 Potassium 4.3 mmol/L (3.5-5.1) 03/31/22 09:20 Chloride 102 mmol/L (98-107) 03/31/22 09:20 Carbon Dioxide 26 mmol/L (22-29) 03/31/22 09:20 Anion Gap 15.3 (5-19) 03/31/22 09:20 BUN 17 mg/dL (8-23) 03/31/22 09:20 Creatinine 0.7 mg/dL (0.7-1.2) 03/31/22 09:20 GFR Calculation 114.3 mL/min (90-130) 03/31/22 09:20 Glucose 142 mg/dL (65-115) H 03/31/22 09:20 Calculated Osmolality 292 mOsm/kg (285-295) 03/31/22 09:20 Calcium 9.2 mg/dL (8.5-10.5) 03/31/22 09:20 Total Bilirubin 0.4 mg/dL (0.15-1.2) 03/31/22 09:20 AST 47 U/L (0-40) H 03/31/22 09:20 ALT 78 U/L (0-41) H 03/31/22 09:20 Alkaline Phosphatase 93 IU/L (40-130) 03/31/22 09:20 Troponin T Baseline 10 ng/L (0-15) 03/31/22 09:20 Troponin T 120 Minute 9.03 ng/L (0-15) 03/31/22 11:19 Delta Troponin T -0.97 ABS# (0-10) L 03/31/22 11:19 Total Protein 7.3 g/dL (6.6-8.7) 03/31/22 09:20 Albumin 4.2 g/dL (3.5-5.2) 03/31/22 09:20 Globulin 3.1 g/dL (1.3-4.6) 03/31/22 09:20 EKG Data EKG 1: I personally reviewed and interpreted this EKG as follows: EKG interpretation date: 03/31/22 EKG interpretation time: 09:14 Interpretation: nsr hr [address] or t wave abnormalities qrs 90 qtc 379 EKG 2: I personally reviewed and interpreted this EKG as follows: EKG interpretation date: 03/31/22 EKG interpretation time: 11:07 Interpretation: nsr hr [address] or t wave abnormalities qrs 87 qtc 388 Discharge Plan Discharge Patient Disposition: Home Clinical Impression: Chest pain Condition: Stable Prescriptions: No Action tamsulosin [Flomax] 0.4 mg capsule 0.4 mg PO DAILY 0RF nitroglycerin [Nitrostat] 0.4 mg tablet, sublingual 0.4 mg SUBLINGUAL Q5M PRN (Reason: CHEST PAINS) 0RF Rx Instructions: do not exceed 3 doses per episode sildenafil 50 mg tablet 50 mg PO DAILY PRN (Reason: ERECTILE DISFUNCTION) 0RF Rx Instructions: administer 30 minutes to 4 hours before activity simvastatin 40 mg tablet 40 mg PO DAILY 0RF metoprolol tartrate 50 mg tablet 50 mg PO BID 0RF lisinopril 40 mg tablet 80 mg PO DAILY 0RF aspirin [Aspir-81] 81 mg tablet,delayed release (DR/EC) 81 mg PO DAILY 0RF Hold Instructions: Resume on 09/09/21. levothyroxine 150 mcg capsule 175 mcg PO DAILY 0RF amlodipine 5 mg tablet 5 mg PO DAILY Qty: 90 3RF (DME) Custom Molded Functional Orthotics See Rx Instructions .ROUTE .MEDSUPPLY Qty: 1 0RF Rx Instructions: As directed by [employer] isosorbide mononitrate 30 mg tablet extended release 24 hr 15 mg PO DAILY Qty: 15 0RF Rx Instructions: Make follow-up for further refills. metformin 500 mg tablet 500 mg PO BID Qty: 30 0RF Rx Instructions: take 1 PO BID for diabetes montelukast 10 mg Tablet 10 mg PO DAILY 0RF sertraline [Zoloft] 50 mg Tablet 50 mg PO DAILY 0RF hydrocodone-acetaminophen 5-325 mg tablet 1 tab PO Q6H PRN (Reason: pain) Qty: 28 0RF Discharge Orders: Discharge ED (Routine); Ordered 03/31/22 Ordered By: Thuy Brito Referrals: Suzan Adan FNP [Primary Care Provider] - 1-3 days Discharge Diet: Advance as tolerated Discharge Activity: Resume usual activity Patient Instructions: Chest Pain (ED) Coding Level of Care Code ED Rocket Test Fire Worker for g Fwd Exam Comprehensive
[2022-03-31 09:26] LABS: Basophils % 0.3 %; Eosinophils % 0.4 %; Hematocrit 44.7 % (42.0-52.0); Hemoglobin 15.9 g/dL (11.7-16.6); Lymphocytes # 1.3 10^3/uL (0.8-4.8); Lymphocytes % 12.3 %; Mean Corpuscular HGB Conc 35.6 g/dL (30.0-36.0); Mean Corpuscular Hemoglobin 32.5 pg (28.0-34.0); Mean Corpuscular Volume 91.4 fl (80-94); Mean Platelet Volume 10.2 fL (7.4-10.4); Monocytes # 0.6 10^3/uL (0.2-0.9); Monocytes % 5.3 %; Neutrophils # 8.54 10^3/uL (1.8-7.7); Neutrophils % 80.9 %; Nucleated Red Blood Cells % 0 %; Platelet Count 208 10^3/cmm (130-400); Red Blood Count 4.89 10^6/uL (4.1-5.3); Red Cell Distribution Width 12.3 % (12.1-15.1); White Blood Count 10.6 10^3/uL (4.0-10.0)
[2022-03-31] MEDS: hyDRALAzine 20 mg/mL INJ 1 mL 10 MG IVP (09:35)
[2022-03-31] MEDS: aspirin 81 mg Chew Tablet 324 MG PO (09:35)
[2022-03-31 09:54] LABS: Alanine Aminotransferase 78 U/L (0-41); Albumin Level 4.2 g/dL (3.5-5.2); Alkaline Phosphatase 93 IU/L (40-130); Anion Gap 15.3 (5-19); Aspartate Amino Transferase 47 U/L (0-40); Blood Urea Nitrogen 17 mg/dL (8-23); Calcium 9.2 mg/dL (8.5-10.5); Carbon Dioxide 26 mmol/L (22-29); Chloride 102 mmol/L (98-107); Globulin 3.1 g/dL (1.3-4.6); Glomerular Filtration Rate 114.3 mL/min (90-130); Glucose 142 mg/dL (65-115); Osmolality Calculated 292 mOsm/kg (285-295); Potassium 4.3 mmol/L (3.5-5.1); Sodium 139 mmol/L (136-145); Total Bilirubin 0.4 mg/dL (0.15-1.2); Total Protein 7.3 g/dL (6.6-8.7)
[2022-03-31 09:55] LABS: Troponin(5th) Baseline 10 ng/L (0-15)
[2022-03-31 10:05] VITALS: BP 167/92; PULSE 72; RESP 23; O2SAT 97
[2022-03-31 10:47] LABS: D Dimer 0.39 ug/mIFEU (0-0.59)
--- NOTE | 2022-03-31 11:00 | ECG_ITS ---
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 Measurements Intervals [place] Rate: 73 P: 63 NM: 167 QRS: 50 QRSD: 87 T: 41 QT: 362 QTc: 400 Interpretive Statements SINUS RHYTHM Compared to ECG 03/31/2022 09:14:19 No significant changes Electronically Signed On 03-31-2022 13:00:12 CDT by Patrick Alba M.D. [email or web address] [email or web address] point mature adult care unitWebcrumbzmercy health lorain hospitalBattlepro/store/OM/[id number]/[id number]
[2022-03-31 11:13] VITALS: BP 170/94; PULSE 76; RESP 21; O2SAT 98
[2022-03-31 11:54] LABS: Troponin 5 2HR 9.03 ng/L (0-15)
[2022-03-31 12:21] LABS: Troponin 5 2HR Delta -0.97 ABS# (0-10)
[2022-03-31 12:30] VITALS: BP 161/79; PULSE 78; RESP 23; O2SAT 98
--- NOTE | 2022-04-02 14:11 | DCPLANNER ---
biomedical manager had message to schedule a follow up appointment for patient with [facility] care. biomedical manager sent patients information to the front office staff at heart [facility]. Patients information will be printed and reviewed. Clinic will call patient with appointment information.
--- NOTE | 2022-04-06 15:51 | DCPLANNER ---
Addendum entered by Juani Jung 07/03/22 14:31: Patient had a follow up appointment scheduled with [facility] - patient did attend appointment. Original Note: Patient has a follow up appointment scheduled for Sunday, April 10, 2022 at 1:00 with SINGLE SPINDLE SCREW MACHINE OPERATOR, Rosmery Dahl. Clinic will contact patient with appointment information.
== END 2022-03-31 12:31 | disposition home or self-care (01) ==
PROVIDERS: Emergency Provider Emergency Medicine; PCP Nurse Practitioner Family
DX: R07.9 Chest pain, unspecified (principal); Z79.82 Long term (current) use of aspirin; I25.10 Atherosclerotic heart disease of native coronary artery without angina pectoris; I10 Essential (primary) hypertension; E78.5 Hyperlipidemia, unspecified; E03.9 Hypothyroidism, unspecified; B19.20 Unspecified viral hepatitis C without hepatic coma
CPT/HCPCS: 36415; 71045; 80053; 84484; 85025; 85378; 93005; 96374; 99285; J0360

== ENCOUNTER → 2022-04-10 12:47 | Outpatient (BNVA) | payer MEDICARE, SELFPAY | PROVIDERS: PCP Nurse Practitioner Family; Visit Provider Nurse Practitioner Family | DX: I25.10 Atherosclerotic heart disease of native coronary artery without angina pectoris (principal); I10 Essential (primary) hypertension; R07.89 Other chest pain | CPT/HCPCS: 99214 ==

== ENCOUNTER 2022-05-01 20:00 | Outpatient (CLI) | payer MEDICARE, SELFPAY | END 2022-05-01 20:01 | disposition home or self-care (01) | LOC: SLEEP 05-02 04:48 | PROVIDERS: PCP Nurse Practitioner Family; Visit Provider Nurse Practitioner Family | DX: G47.33 Obstructive sleep apnea (adult) (pediatric) (principal) | CPT/HCPCS: 95811 ==

== ENCOUNTER 2022-05-11 08:07 | Outpatient (CLI) | payer MEDICARE, SELFPAY ==
[2022-05-11 09:09] VITALS: BMI 34.5
--- NOTE | 2022-05-11 09:09 | NMCV_ITS ---
NM eulogio perf SPECT r/s* [id number] Db Mcdonald Age: 61 Gender: M : 1960 Exam Date: 05/11/2022 09:53 Ordering Phys: Rosmery Dahl Technologist: ASHELY Martinez Exam Location: [facility] Indications: CHEST PAIN STRESS TEST Please [facility] IMAGE PROTOCOL Rest/Stress 1 Lexiscan Day Radiopharmaceutical Dose (mCi) Administration Site Administered by Rest: Tc-99m 10.6 IV ASHELY Martinez Sestamibi Stress:Tc-99m 33.0 IV ASHELY Rodriguez Sestamibi Rest: 11-May-2022 60 Discovery 630 Stress: 11-May-2022 30 Discovery 630 0.4mg Lexiscan. Images obtained in supine and prone position. SPECT RESULTS Technical Quality: Excellent Raw Data Analysis: Normal Image Corrections: No attenuation or motion correction applied Summed Stress Score: 1 Summed Rest Score: 2 Summed Difference Score: 0 PERFUSION FINDINGS Small sized perfusion abnormality of mild severity of basal to mid inferolateral and apical lateral zamora on rest images with improved tracer uptake in stress images. FUNCTIONAL RESULTS (calculated via Gated SPECT) Stress Image LV EF (%): 65 Stress EDV (mL):111 TID: 1.03 Stress ESV (mL):39 FUNCTIONAL FINDINGS: The left ventricle is normal in size. Transient Ischemia Dilatation of 1. There is normal left ventricular systolic function. The left ventricular ejection fraction is normal with a value of 65%. There is normal left ventricular wall thickening with no regional wall motion abnormality. IMPRESSIONS 1. Small sized perfusion abnormality of mild severity of basal to mid inferolateral and apical lateral zamora with improved tracer uptake on stress images. 2. This is suggestive of attenuation artifact. 3. Overall left ventricular systolic function is normal without regional wall motion abnormalities, LVEF=65%. 4. No coronary ischemia based on this study. Funmilayo Christensen MD (Electronically Signed) Final Date: 11 May 2022 13:31 S
--- NOTE | 2022-05-11 09:09 | ECG_ITS ---
[facility] Test Date: 2022-05-11 Pat Name: Db Mcdonald Department: Room: Gender: Male Lna: Cheyenne Goddard : 1960 Requested By: Rosmery Dahl Order Number: [id number] Dunaway MD: Funmilayo Christensen M.D. Interpretive Statements NAME OF STUDY: LEXISCAN SESTAMIBI STRESS TEST INDICATION: Chest Pain PROCEDURE: At the baseline, the blood pressure was 122/69 mm Hg with a heart rate of 61 bpm. The electrocardiogram showed sinus rhythm, normal axis and non specific T wave changes. ??? The Lexiscan was infused over a period of 20 seconds. A total of 0.4 milligrams of Lexiscan was infused. The stress phase was continued for a total of 5 minutes. Heart rate at the end of the stress phase was 76 bpm with a blood pressure of 146/71 mm Hg. The EKG at the peak infusion revealed no significany ST-T wave changes. ??? Sestamibi was injected 20 seconds after the Lexiscan infusion. ??? Blood pressure at the end of the recovery phase was 118/69 mm Hg with a heart rate of 77 beats per minute. ??? CONCLUSION: 1. Normal EKG response to LexiScan infusion. 2. No LexiScan induced chest pain or cardiac arrhythmia. 3. Normal blood pressure and heart rate response. 4. Sestamibi/sestamibi perfusion scan pending; see separate report. Electronically Signed On 05-20-2022 19:23:42 CDT by Funmilayo Christensen M.D. [email or web address] [email or web address]/store/[id number]
[2022-05-11] MEDS: regadenoson 0.4 Mg/5 ml Syringe IVP (10:34)
[2022-05-11 10:42] VITALS: BP 118/69; PULSE 73
== END 2022-05-11 08:08 | disposition home or self-care (01) ==
PROVIDERS: PCP Nurse Practitioner Family; Visit Provider Nurse Practitioner Family
DX: R07.89 Other chest pain (principal); I25.10 Atherosclerotic heart disease of native coronary artery without angina pectoris
CPT/HCPCS: 78452; 93017; A9500; J2785

== ENCOUNTER 2022-05-13 08:57 | Emergency (ER) | payer MEDICARE, SELFPAY ==
[2022-05-13] VITALS (7 sets, daily range): BP systolic 123–151; BP diastolic 70–100; PULSE 78–90; RESP 16–18; TEMP 36.4; O2SAT 95–97; BMI 35.2
--- NOTE | 2022-05-13 09:24 | CTR_ITS ---
PROCEDURE INFORMATION: Exam: CT Abdomen And Pelvis With Contrast Exam date and time: 05/13/2022 11:42 AM Age: 61 years old Clinical indication: Abdominal pain; Localized; Lower; Prior surgery; Surgery type: Hernia; Additional info: Abd pain TECHNIQUE: Imaging protocol: Computed tomography of the abdomen and pelvis with contrast. Radiation optimization: All CT scans at this facility use at least one of these dose optimization techniques: automated exposure control; mA and/or kV adjustment per patient size (includes targeted exams where dose is matched to clinical indication); or iterative reconstruction. Contrast material: OMNI 350; Contrast volume: 95 ml; Contrast route: INTRAVENOUS (IV); COMPARISON: CT abdomen pelvis w con* [id number] 01/03/2021 1:42 PM RADIATION DOSE METRICS: Total DLP (mGy-cm): 1907.54 FINDINGS: Lungs: Calcified granulomas in the right lung. Liver: Hepatic steatosis. Gallbladder and bile ducts: Normal. No calcified stones. No ductal dilation. Pancreas: Normal. No ductal dilation. Spleen: Normal. No splenomegaly. Adrenal glands: Normal. No mass. Kidneys and ureters: Left renal cyst. No hydronephrosis. Stomach and bowel: There is a small gas and fluid collection in the sigmoid mesentery measuring 3.0 x 1.9 x 2.3 cm. No bowel obstruction. There is evidence of acute sigmoid diverticulitis/colitis with adjacent inflammatory stranding and edema. This is in continuity with the small gas and fluid collection within the sigmoid mesentery. Appendix: No evidence of appendicitis. Intraperitoneal space: Unremarkable. No free air. No significant fluid collection. Vasculature: Mild burden of atherosclerotic plaque in the abdominal aorta and branch vessels. No aneurysm. Lymph nodes: Unremarkable. No enlarged lymph nodes. Urinary bladder: Unremarkable as visualized. Reproductive: Unremarkable as visualized. Bones/joints: Unremarkable. No acute fracture. Soft tissues: Unremarkable. CT/CT abdomen pelvis w con* [id number] IMPRESSION: Acute sigmoid diverticulitis/colitis complicated by contained perforation and adjacent small gas and fluid collection in the sigmoid mesentery. THIS REPORT CONTAINS FINDINGS THAT MAY BE CRITICAL TO PATIENT CARE. The findings were verbally communicated via telephone conference with Jonatan Brunner at 12:02 PM CDT on 05/13/2022. The findings were acknowledged and understood. COMMENTS: Consistent with the [employer]'s Incidental Findings Committee white paper (J Am Mattie Radiol 2018): Any incidental renal lesion less than 1 cm or classified as too small to characterize, or any incidental cystic renal lesion characterized as simple-appearing, is likely benign. No follow-up imaging is recommended for these lesions per consensus recommendations based on imaging criteria.
--- NOTE | 2022-05-13 09:25 | ED_ITS ---
HPI - Abdominal Pain General: Chief Complaint: Abdominal Pain Stated Complaint: Abd pains Time Seen by Provider: 05/13/22 09:15 History of Present Illness: 61-year-old presents due to bilateral lower abdominal pain and small amount of bloody streaks in stool for 2 weeks. He is on baby aspirin. Denies any other blood thinners. States pain is achy and crampy and does not radiate. Denies testicular pain. Denies dysuria or urethral discharge. Denies nausea or vomiting but does report some diarrhea. Denies recent hospitalization or antibiotic use. Review of Systems Narrative: - CONSTITUTIONAL: Denies weight loss, fever and chills. - HEENT: Denies changes in vision and hearing. - RESPIRATORY: Denies SOB and cough. - CV: Denies palpitations and CP. - GI: As above - : Denies dysuria and urinary frequency. - MSK: Denies myalgia and joint pain. - SKIN: Denies rash and pruritus. - NEUROLOGICAL: Denies headache, weakness, numbness and syncope. - PSYCHIATRIC: Denies suicidal ideation [facility] ED PFSH: Medical History ASHD (arteriosclerotic heart disease) Hepatitis C HTN (hypertension) Hyperlipidemia Hypothyroidism Umbilical hernia Surgical History S/P PTCA (percutaneous transluminal coronary angioplasty) Family History Other Cancer Social History Smoking and tobacco status: never smoked Physical Exam Narrative: EXAM NARRATIVE: - GENERAL: Alert and oriented x 3. No acute distress. Well-nourished. - EYES: EOMI. Anicteric. - HENT: Atraumatic, no C-spine tenderness. Moist mucous membranes. No scleral icterus. No cervical lymphadenopathy. - LUNGS: Clear to auscultation bilaterally. No accessory muscle use. Equal lung sounds bilaterally. No respiratory distress. - CARDIOVASCULAR: Regular rate and rhythm. No murmur. No JVD. - ABDOMEN: Soft, mildly tender in bilateral lower quadrants, non-distended. Negative CVA tenderness bilaterally, no rebound or guarding, negative Murillo sign. No palpable masses. - EXTREMITIES: No edema. Non-tender. - SKIN: No rashes or lesions. Warm. - NEUROLOGIC: No meningismus or focal neurological deficits. CN II-XII grossly intact. - PSYCHIATRIC: Cooperative. Appropriate mood and affect. Course Vital Signs: Vital signs: Vital Signs Temperature 97.6 F 05/13/22 09:08 Pulse Rate 78 05/13/22 10:37 Respiratory Rate 16 05/13/22 10:37 Blood Pressure 123/79 05/13/22 10:37 Pulse Oximetry 96 05/13/22 10:37 MDM - Abdominal Pain Medical Decision Making 61-year-old presents for lower abdominal pain. Physical exam does reveal lower abdominal tenderness. CT scan concerning for diverticulitis with possible perforation and free gas. Patient is hemodynamically stable afebrile nontoxic- appearing. Surgery consulted and they recommend starting antibiotics at this time and they will follow patient as he is admitted. Remainder of lab work and imaging reviewed. Discussed with hospitalist and they agreed patient would benefit from admission. Patient admitted in stable condition. Further evaluation management per hospitalist team. Lab Data : 05/13/22 10:05 05/13/22 10:05 Labs/Radiology: Radiology Impressions Abdomen/Pelvis CT 05/13/22 09:24 IMPRESSION: Acute sigmoid diverticulitis/colitis complicated by contained perforation and adjacent small gas and fluid collection in the sigmoid mesentery. THIS REPORT CONTAINS FINDINGS THAT MAY BE CRITICAL TO PATIENT CARE. The findings were verbally communicated via telephone conference with Jonatan Brunner at 12:02 PM CDT on 05/13/2022. The findings were acknowledged and understood. COMMENTS: Consistent with the [employer]'s Incidental Findings Committee white paper (J Am Mattie Radiol 2018): Any incidental renal lesion less than 1 cm or classified as too small to characterize, or any incidental cystic renal lesion characterized as simple-appearing, is likely benign. No follow-up imaging is recommended for these lesions per consensus recommendations based on imaging criteria. Laboratory Results WBC 11.9 10^3/uL (4.0-10.0) H 05/13/22 10:05 RBC 4.43 10^6/uL (4.1-5.3) 05/13/22 10:05 Hgb 14.1 g/dL (11.7-16.6) 05/13/22 10:05 Hct 40.7 % (42.0-52.0) L 05/13/22 10:05 MCV 91.9 fl (80-94) 05/13/22 10:05 MCH 31.8 pg (28.0-34.0) 05/13/22 10:05 MCHC 34.6 g/dL (30.0-36.0) 05/13/22 10:05 RDW 12.6 % (12.1-15.1) 05/13/22 10:05 Plt Count 206 10^3/cmm (130-400) 05/13/22 10:05 MPV 10.1 fL (7.4-10.4) 05/13/22 10:05 Neut % (Auto) 79.4 % 05/13/22 10:05 Lymph % (Auto) 10.1 % 05/13/22 10:05 [place] % (Auto) 9.0 % 05/13/22 10:05 Eos % (Auto) 0.5 % 05/13/22 10:05 Baso % (Auto) 0.3 % 05/13/22 10:05 Neut # (Auto) 9.45 10^3/uL (1.8-7.7) H 05/13/22 10:05 Lymph # (Auto) 1.2 10^3/uL (0.8-4.8) 05/13/22 10:05 [place] # (Auto) 1.1 10^3/uL (0.2-0.9) H 05/13/22 10:05 Eos # (Auto) 0.1 10^3/uL (0.0-0.8) 05/13/22 10:05 Baso # (Auto) 0.0 10^3/uL (0.0-0.1) 05/13/22 10:05 Nucleated RBC % (auto) 0 % 05/13/22 10:05 Nucleated RBCs # 0.0 /100WBC 05/13/22 10:05 Sodium 136 mmol/L (136-145) 05/13/22 10:05 Potassium 4.0 mmol/L (3.5-5.1) 05/13/22 10:05 Chloride 99 mmol/L (98-107) 05/13/22 10:05 Carbon Dioxide 26 mmol/L (22-29) 05/13/22 10:05 Anion Gap 15.0 (5-19) 05/13/22 10:05 BUN 12 mg/dL (8-23) 05/13/22 10:05 Creatinine 0.8 mg/dL (0.7-1.2) 05/13/22 10:05 GFR Calculation 98.0 mL/min (90-130) 05/13/22 10:05 Glucose 97 mg/dL (65-115) 05/13/22 10:05 Calculated Osmolality 282 mOsm/kg (285-295) L 05/13/22 10:05 Lactate 1.0 mmol/L (0.5-2.2) 05/13/22 10:32 Calcium 8.7 mg/dL (8.5-10.5) 05/13/22 10:05 Total Bilirubin 0.4 mg/dL (0.15-1.2) 05/13/22 10:05 AST 22 U/L (0-40) 05/13/22 10:05 ALT 42 U/L (0-41) H 05/13/22 10:05 Alkaline Phosphatase 85 IU/L (40-130) 05/13/22 10:05 Total Protein 6.7 g/dL (6.6-8.7) 05/13/22 10:05 Albumin 3.6 g/dL (3.5-5.2) 05/13/22 10:05 Globulin 3.1 g/dL (1.3-4.6) 05/13/22 10:05 Lipase 14 U/L (13-60) 05/13/22 10:05 Urine Color Yellow (Yellow) 05/13/22 10:26 Urine Appearance Clear (CLEAR) 05/13/22 10:26 Urine pH 5 (5-7) 05/13/22 10:26 Ur Specific Hasty 1.020 (1.005-1.030) 05/13/22 10:26 Urine Protein Neg (Negative) 05/13/22 10:26 Urine Glucose (UA) Norm (Normal) 05/13/22 10:26 Urine Ketones 2+ (Negative) H 05/13/22 10:26 Urine Blood Neg (Negative) 05/13/22 10:26 Urine Nitrate Negative (Negative) 05/13/22 10:26 Urine Bilirubin 1+ (Negative) H 05/13/22 10:26 Urine Urobilinogen Norm mg/dL (Negative) 05/13/22 10:26 Ur Leukocyte Esterase Negative (Negative) 05/13/22 10:26 Urine RBC None /hpf (0-2) 05/13/22 10:26 Urine WBC None /hpf (0-5) 05/13/22 10:26 Ur Squamous Epith Cells None /hpf (0-5) 05/13/22 10:26 Amorphous Sediment Not Reportable 05/13/22 10:26 Urine Bacteria Trace /hpf (NONE) 05/13/22 10:26 Urine Mucus 2+ /hpf 05/13/22 10:26 Discharge Plan Discharge Condition: Stable Prescriptions: No Action nitroglycerin [Nitrostat] 0.4 mg tablet, sublingual 0.4 mg SUBLINGUAL Q5M PRN (Reason: CHEST PAINS) 0RF Rx Instructions: do not exceed 3 doses per episode simvastatin 40 mg tablet 40 mg PO DAILY 0RF metoprolol tartrate 50 mg tablet 50 mg PO BID 0RF lisinopril 40 mg tablet 80 mg PO DAILY 0RF aspirin [Aspir-81] 81 mg tablet,delayed release (DR/EC) 81 mg PO DAILY 0RF Hold Instructions: Resume on 09/09/21. levothyroxine 150 mcg capsule 175 mcg PO DAILY 0RF glipizide 5 mg tablet 5 mg PO DAILY 0RF amlodipine 5 mg tablet 10 mg PO DAILY Qty: 90 3RF (DME) Custom Molded Functional Orthotics See Rx Instructions .ROUTE .MEDSUPPLY Qty: 1 0RF Rx Instructions: As directed by [employer] isosorbide mononitrate 30 mg tablet extended release 24 hr 15 mg PO DAILY Qty: 15 0RF Rx Instructions: Make follow-up for further refills. metformin 500 mg tablet 500 mg PO BID Qty: 30 0RF Rx Instructions: take 1 PO BID for diabetes montelukast 10 mg Tablet 10 mg PO DAILY 0RF hydrocodone-acetaminophen 5-325 mg tablet 1 tab PO Q6H PRN (Reason: pain) Qty: 28 0RF Referrals: Suzan Adan FNP [Primary Care Provider] - Coding Level of Care Code ED C Application Developer for Dawsong Gilda
[2022-05-13 10:16] LABS: Basophils % 0.3 %; Eosinophils # 0.1 10^3/uL (0.0-0.8); Eosinophils % 0.5 %; Hematocrit 40.7 % (42.0-52.0); Hemoglobin 14.1 g/dL (11.7-16.6); Lymphocytes # 1.2 10^3/uL (0.8-4.8); Lymphocytes % 10.1 %; Mean Corpuscular HGB Conc 34.6 g/dL (30.0-36.0); Mean Corpuscular Hemoglobin 31.8 pg (28.0-34.0); Mean Corpuscular Volume 91.9 fl (80-94); Mean Platelet Volume 10.1 fL (7.4-10.4); Monocytes # 1.1 10^3/uL (0.2-0.9); Neutrophils # 9.45 10^3/uL (1.8-7.7); Neutrophils % 79.4 %; Nucleated Red Blood Cells % 0 %; Platelet Count 206 10^3/cmm (130-400); Red Blood Count 4.43 10^6/uL (4.1-5.3); Red Cell Distribution Width 12.6 % (12.1-15.1); White Blood Count 11.9 10^3/uL (4.0-10.0)
[2022-05-13 10:34] LABS: Alanine Aminotransferase 42 U/L (0-41); Albumin Level 3.6 g/dL (3.5-5.2); Alkaline Phosphatase 85 IU/L (40-130); Aspartate Amino Transferase 22 U/L (0-40); Blood Urea Nitrogen 12 mg/dL (8-23); Calcium 8.7 mg/dL (8.5-10.5); Carbon Dioxide 26 mmol/L (22-29); Chloride 99 mmol/L (98-107); Globulin 3.1 g/dL (1.3-4.6); Glucose 97 mg/dL (65-115); Lipase 14 U/L (13-60); Osmolality Calculated 282 mOsm/kg (285-295); Sodium 136 mmol/L (136-145); Total Bilirubin 0.4 mg/dL (0.15-1.2); Total Protein 6.7 g/dL (6.6-8.7)
[2022-05-13 11:15] LABS: Urine Appearance Clear (CLEAR); Urine Color Yellow (Yellow); pH Urine 5 (5-7)
[2022-05-13 11:16] LABS: Bilirubin Urine 1+ (Negative); Blood Urine Neg (Negative); Glucose Urine UA Norm (Normal); Ketones Urine 2+ (Negative); Leukocyte Esterase Urine Negative (Negative); Nitrate Urine Negative (Negative); Protein Urine Neg (Negative); Urobilinogen Urine Norm (Negative)
[2022-05-13 11:17] LABS: Add Urine Culture? No; Bacteria Urine TRACE /hpf; Mucus Urine 2+ /hpf
[2022-05-13] MEDS: sodium chloride 0.9% 1,000 ML 999 ML IV (12:00)
[2022-05-13] MEDS: piperacillin-tazobactam 3.375 GM in sodium chloride 0.9% (plus) 50 ML IV (12:26)
--- NOTE | 2022-05-13 13:01 | P.HP_ITS ---
Providers/Chief Complaint Primary Care Provider: CRISTAL Plascencia Chief Complaint: Abd pains History of Present Illness Db Mcdonald is a 61 year old male with a past medical history of noninsulin- dependent type 2 diabetes mellitus, hypertension, hyperlipidemia, CAD status post stenting, on aspirin, who presents to [facility] due to 2-week history abdominal pain. Patient tells me that for the last 2 weeks he has had abdominal pain, bloating, intermittent diarrhea. He has never had diverticulitis before, no fevers, no chills, no nausea, no vomiting. He tells me that he persistently had worsening abdominal pain, bloating, his last bowel movement was last night which was small amount of watery diarrhea. Due to persistent abdominal pain and bloating, he presented to the emergency room. In the emergency room he was found to have Acute sigmoid diverticulitis with complicated by contained perforation and adjacent small gas and fluid collection in the sigmoid mesentery. Hemodynamically stable, alert oriented x3, on exam abdomen is distended, diffusely tender, decreased bowel sounds. No guarding, no rebound, no rigidity. His CT scan shows a 3 x 1.9 x 2.3 cm gas and fluid collection. I discussed this with surgery on-call, Dr. Domínguez, given the size of this contained perforation, this could be a abscess/fluid collection that is drainable amenable to IR drainage. Unfortunately as it is a holiday weekend, we do not have any IR coverage. After discussion with surgery, is recommended for consideration of IR evaluation. Patient has received antibiotics. I would recommend transferring to tertiary level center for IR evaluation for possible drain placement. I discussed this with patient, he voiced understanding, all questions answered, agreed for transfer to higher level center for concerns for perforated diverticulitis, with drainable abscess amenable to IR drain. The ER provider is working on transfer to tertiary level center that has IR coverage Review of Systems Const: Denies: fever(s) Resp: Denies: dyspnea GI: Reports: abdominal pain and diarrhea; Denies: nausea or vomiting : Denies: dysuria Skin/Breast: Denies: rash Neuro: Denies: headache(s) Medications/Allergies Home Medications Medication Instructions Recorded Confirmed Last Taken Type lisinopril 40 mg tablet 80 mg PO DAILY tab 04/28/20 04/10/22 09/04/21 History metoprolol tartrate 50 mg tablet 50 mg PO BID 04/28/20 04/10/22 09/05/21 History nitroglycerin 0.4 mg sublingual 0.4 mg SUBLINGUAL Q5M PRN 09/08/20 04/10/22 Un known History tablet (Nitrostat) metformin 500 mg tablet 500 mg PO BID #30 tab 10/03/20 04/10/22 09/04/21 Rx isosorbide mononitrate 30 mg 15 mg PO DAILY #15 tab 02/26/22 04/10/22 Unknown Rx tablet,extended release 24 hr amlodipine 5 mg tablet 10 mg PO DAILY #90 tab 04/10/22 Unknown Rx glipizide 5 mg tablet 5 mg PO DAILY 04/10/22 04/10/22 Unknown History albuterol sulfate 90 mcg/actuation 2 puff INHALATION QID PRN 05/13/22 05/13/22 Unknown History aerosol inhaler aspirin 81 mg chewable tablet 81 mg PO DAILY 05/13/22 05/13/22 05/13/22 History gabapentin 300 mg capsule 300 mg PO BEDTIME 05/13/22 05/13/22 05/12/22 History levothyroxine 200 mcg tablet 200 mcg PO DAILY 05/13/22 05/13/22 05/13/22 History (Euthyrox) tamsulosin 0.4 mg capsule 0.4 mg PO BEDTIME 05/13/22 05/13/22 05/12/22 History Allergies Allergy/AdvReac Type Severity Reaction Status Date / Time No Known Allergies Allergy Verified 04/10/22 09:13 PFSH Acute PFSH: Medical History ASHD (arteriosclerotic heart disease) Hepatitis C HTN (hypertension) Hyperlipidemia Hypothyroidism Umbilical hernia Surgical History S/P PTCA (percutaneous transluminal coronary angioplasty) Family History Other Cancer Social History Smoking and tobacco status: never smoked Vitals/I&O/Wt Last Vital Signs Temp 97.6 F 05/13/22 09:08 Pulse 82 05/13/22 12:59 Resp 16 05/13/22 12:59 BP 149/81 05/13/22 12:59 Pulse Ox 96 05/13/22 12:59 05/12/22 05/13/22 05/13/22 22:59 06:59 14:59 Intake Total 1000 / 1000 Balance 1000 / 1000 Weight last 48 hrs Weight 117.934 kg Physical Exam Const: COMMON NORMALS: no acute distress and patient oriented x3 HENMT: COMMON NORMALS: normocephalic HEAD & SCALP: normocephalic Neck/C-Spine: COMMON NORMALS: no JVD Resp: COMMON NORMALS: normal respiratory effort, No retractions, No use of accessory muscles and clear to auscultation bilaterally AUSCULTATION: clear to auscultation bilaterally Cardio: COMMON NORMALS: no JVD, regular rate, regular rhythm, S1 normal heart sound present and S2 normal heart sound present RATE: regular rate RHYTHM: regular rhythm HEART SOUNDS: S1 normal heart sound present and S2 normal heart sound present GI: INSPECTION: Yes abdominal distension AUSCULTATION: Yes Hypoactive bowel sounds present PALPATION: Yes Firmness to palpation present (GI), Yes Tenderness to palpation present (GI) (Diffuse tenderness), No Guarding due to palpation present (GI) and No Rigid due to palpation Extremity: COMMON NORMALS: capillary refill normal, no clubbing, cyanosis or edema, no calf tenderness and no pedal edema Neuro: COMMON NORMALS: patient oriented x3 Psych: COMMON NORMALS: mental status grossly normal Data : 05/13/22 10:05 05/13/22 10:05 Micro: Microbiology 05/13/22 12:01 Blood Culture - Preliminary Blood SPECIMEN COLLECTED 05/13/22 12:00 Blood Culture - Preliminary Blood SPECIMEN COLLECTED A&P Assessment and plan (1) Perforation of sigmoid colon due to diverticulitis: Status: Acute Plan Perforated diverticulitis -CT scan abdomen pelvis here is a small gas and fluid collection in the sigmoid mesentery measuring 3.0 x 1.9 x 2.3 cm. No bowel obstruction. There is evidence of acute sigmoid diverticulitis/colitis with adjacent inflammatory stranding and edema. This is in continuity with the small gas and fluid collection within the sigmoid mesentery. No free air -Continue n.p.o. -Zosyn for antibiotic coverage -Gentle IV hydration -Needs to have interventional radiology evaluation for possible drainage -Transfer to tertiary level center -Recommend transfer as we do not have IR coverage here over the weekend Attestations Medical Necessity Statement*: Patient requires transfer for perforated diverticulitis Coding Level of Care Code Acute Cylinder Sander Operator for Chg Fwd Diagnoses Perforation of sigmoid colon due to diverticulitis K57.20
[2022-05-13] MEDS: ondansetron 2 mg/ML SDV 2 mL 4 MG IVP (13:02)
[2022-05-13] MEDS: morphine 4 mg/mL SDV 1 mL IVP ×2 (13:02→16:38)
== END 2022-05-13 16:52 ==
PROVIDERS: Emergency Provider Emergency Medicine; PCP Nurse Practitioner Family
DX: R10.9 Unspecified abdominal pain (principal); Z79.84 Long term (current) use of oral hypoglycemic drugs; Z79.82 Long term (current) use of aspirin; Z86.19 Personal history of other infectious and parasitic diseases; I10 Essential (primary) hypertension; E78.5 Hyperlipidemia, unspecified
CPT/HCPCS: 36415; 74177; 80053; 81001; 83605; 83690; 85025; 87040; 96365; 96375; 96376; 99285; J2270; J2405; J2543; J7030; Q9967

== ENCOUNTER → 2022-06-06 08:18 | Outpatient (BNVA) | payer MEDICARE, SELFPAY | PROVIDERS: PCP Nurse Practitioner Family; Visit Provider Internal Medicine Pulmonary Disease | DX: R06.00 Dyspnea, unspecified (principal); I25.10 Atherosclerotic heart disease of native coronary artery without angina pectoris; T78.40XA Allergy, unspecified, initial encounter; Z87.891 Personal history of nicotine dependence; Z77.22 Contact with and (suspected) exposure to environmental tobacco smoke (acute) (chronic); Z95.5 Presence of coronary angioplasty implant and graft | CPT/HCPCS: 82103; 82785; 85025; 86003; 99204 ==

== ENCOUNTER → 2022-06-08 08:54 | Outpatient (BNVA) | payer MEDICARE, SELFPAY | PROVIDERS: PCP Nurse Practitioner Family; Visit Provider Internal Medicine | DX: R06.00 Dyspnea, unspecified (principal); I25.10 Atherosclerotic heart disease of native coronary artery without angina pectoris; I10 Essential (primary) hypertension; Z87.891 Personal history of nicotine dependence | CPT/HCPCS: 99214 ==

== ENCOUNTER → 2022-07-19 08:47 | Outpatient (BNVA) | payer MEDICARE, SELFPAY | PROVIDERS: PCP Nurse Practitioner Family; Visit Provider Internal Medicine Pulmonary Disease | DX: R06.00 Dyspnea, unspecified (principal); I25.10 Atherosclerotic heart disease of native coronary artery without angina pectoris; T78.40XS Allergy, unspecified, sequela; Z87.891 Personal history of nicotine dependence; Z77.22 Contact with and (suspected) exposure to environmental tobacco smoke (acute) (chronic) | CPT/HCPCS: 99214 ==

== ENCOUNTER → 2023-01-15 10:38 | Outpatient (BNVA) | payer MEDICARE, SELFPAY | PROVIDERS: PCP Nurse Practitioner Family; Referring Provider Nurse Practitioner Family; Visit Provider Nurse Practitioner Family | DX: M25.511 Pain in right shoulder (principal) | CPT/HCPCS: 73030; 99214 ==

== ENCOUNTER → 2023-01-22 15:46 | Outpatient (BNVA) | payer MEDICARE, SELFPAY | PROVIDERS: PCP Nurse Practitioner Family; Visit Provider Surgery | DX: R13.10 Dysphagia, unspecified (principal) | CPT/HCPCS: 99024; 99203 ==

== ENCOUNTER 2023-02-25 07:38 | Outpatient (CLI) | payer MEDICARE, SELFPAY ==
--- NOTE | 2023-02-25 08:00 | MR_ITS ---
WS: [id number] EXAMINATION: MR shoulder RT wo con* [id number] ORDER DATE: 02/25/2023 7:57 AM COMPARISON: None. HISTORY: pain CONTRAST: None. TECHNIQUE: Axial T2 STAR, coronal proton density fat sat, sagittal T2 fat sat, sagittal proton densit y fat sat, axial proton density fat sat, coronal T2 fat sat, and coronal T1 performed. After contrast , axial T1 fat sat, coronal T1 fat sat, and sagittal T1 fat sat were performed. FINDINGS: Some images degraded by motion. Moderate degenerative arthritis AC joint with mild edema. Small joint effusion. Mild downsloping of t he acromion. Slight subacromial spurring. Mild narrowing of the subacromial space. Impingement on the distal supraspinatus. Distal supraspinatus is intact. Small amount of edema in the infraspinatus and teres minor muscle belly likely due to recent injury/contusion. Infraspinatus tendon appears intact. Otherwise normal teres minor. Normal subscapularis. Normal biceps tendon in the bicipital groove. Normal intra-articular biceps tendon. Moderate degenera tive narrowing glenohumeral articulation. Glenoid labrum appears grossly normal. MR/MR shoulder RT wo con* [id number] IMPRESSION: 1. Moderate degenerative arthritis AC joint mild fluid and edema. Mild narrowi ng of the subacromial space. 2. Distal supraspinatus intact. Edema within the infraspinatus and teres minor muscle bellies which appear intact. No acute appearing rotator cuff tears. 3. Normal biceps tendon in the bicipital groove. 4. Moderate degenerative narrowing at the glenohumeral articulation.
== END 2023-02-25 07:39 | disposition home or self-care (01) ==
LOC: RAD 07:42
PROVIDERS: PCP Nurse Practitioner Family; Visit Provider Nurse Practitioner Family
DX: M25.511 Pain in right shoulder (principal); M19.011 Primary osteoarthritis, right shoulder
CPT/HCPCS: 73221

== ENCOUNTER → 2023-02-26 09:47 | Outpatient (BNVA) | payer MEDICARE, SELFPAY | PROVIDERS: PCP Nurse Practitioner Family; Visit Provider Nurse Practitioner Family | DX: M19.011 Primary osteoarthritis, right shoulder (principal) | CPT/HCPCS: 20610; 99214; J1100; J2795; J3301 ==

== ENCOUNTER → 2023-03-08 08:51 | Outpatient (BNVA) | payer MEDICARE, SELFPAY | PROVIDERS: PCP Nurse Practitioner Family; Visit Provider Internal Medicine | DX: R06.09 Other forms of dyspnea (principal); I25.10 Atherosclerotic heart disease of native coronary artery without angina pectoris; I10 Essential (primary) hypertension; Z87.891 Personal history of nicotine dependence; Z79.82 Long term (current) use of aspirin | CPT/HCPCS: 99214 ==

== ENCOUNTER 2023-05-14 19:28 | Emergency (ER) | payer MEDICARE, SELFPAY ==
[2023-05-14 19:30] VITALS: BP 161/83; PULSE 100; RESP 18; TEMP 36; O2SAT 94; BMI 33.5
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
[2023-05-14 19:48] LABS: Basophils # 0.1 10^3/uL (0.0-0.1); Basophils % 0.5 %; Eosinophils # 0.1 10^3/uL (0.0-0.8); Eosinophils % 1.4 %; Hematocrit 45.7 % (42.0-52.0); Hemoglobin 15.7 g/dL (11.7-16.6); Lymphocytes # 3.6 10^3/uL (0.8-4.8); Lymphocytes % 38.6 %; Mean Corpuscular HGB Conc 34.4 g/dL (30.0-36.0); Mean Corpuscular Hemoglobin 32.8 pg (28.0-34.0); Mean Corpuscular Volume 95.4 fl (80-94); Mean Platelet Volume 9.2 fL (7.4-10.4); Monocytes # 0.7 10^3/uL (0.2-0.9); Monocytes % 7.2 %; Neutrophils # 4.76 10^3/uL (1.8-7.7); Neutrophils % 51.8 %; Nucleated Red Blood Cells % 0 %; Platelet Count 242 10^3/cmm (130-400); Red Blood Count 4.79 10^6/uL (4.1-5.3); Red Cell Distribution Width 13.3 % (12.1-15.1); White Blood Count 9.2 10^3/uL (4.0-10.0)
[2023-05-14 20:03] LABS: Amphetamines Screen Urine Negative (Negative); Barbiturates Screen Urine Negative (Negative); Benzodiazepines Screen Urine Negative (Negative); Cocaine Screen Urine Negative (Negative); Opiate Screen Urine Negative (Negative); PCP Screen Urine Negative (Negative); THC Screen Urine Positive (Negative)
[2023-05-14 20:04] LABS: Alanine Aminotransferase 43 U/L (0-41); Albumin Level 4.3 g/dL (3.5-5.2); Alkaline Phosphatase 85 U/L (40-130); Anion Gap 18.1 (5-19); Aspartate Amino Transferase 35 U/L (0-40); Blood Urea Nitrogen 11 mg/dL (8-23); Calcium 9.2 mg/dL (8.5-10.5); Carbon Dioxide 24 mmol/L (22-29); Chloride 106 mmol/L (98-107); Creatinine Clr Calc Pharmacy 118.6078; Globulin 3.1 g/dL (1.3-4.6); Glomerular Filtration Rate 97.6 mL/min (90-130); Glucose 75 mg/dL (65-115); Osmolality Calculated 296 mOsm/kg (285-295); Potassium 4.1 mmol/L (3.5-5.1); Sodium 144 mmol/L (136-145); Total Bilirubin 0.3 mg/dL (0.15-1.2); Total Protein 7.4 g/dL (6.6-8.7)
[2023-05-14 20:08] LABS: Acetaminophen < 5.0 ug/mL (10-30); Salicylate < 0.3 mg/dL (3-10)
[2023-05-14 20:09] LABS: Alcohol Level 303 mg/dL (0-10)
--- NOTE | 2023-05-15 08:26 | DCPLANNER ---
Addendum entered by Juani Jung 05/17/23 08:43: web services manager received the following message from Cheyenne at [facility] regarding patient: I left Db FRANKS with call back number Original Note: web services manager had message to schedule a follow up appointment for patient with [facility]. web services manager sent patients information to the scheduling department at [facility]. Patients information will be printed and reviewed. Clinic will call patient with appointment information. web services manager also emailed patients information to Cheyenne Rankin, conference coordinator at [facility], who will call patient and explain how to start services at [facility].
== END 2023-05-14 21:14 | disposition home or self-care (01) ==
PROVIDERS: Emergency Provider Emergency Medicine; PCP Nurse Practitioner Family
DX: F32.A Depression, unspecified (principal); F10.129 Alcohol abuse with intoxication, unspecified; Y90.8 Blood alcohol level of 240 mg/100 ml or more; Z79.82 Long term (current) use of aspirin; Z86.19 Personal history of other infectious and parasitic diseases; I10 Essential (primary) hypertension; E78.5 Hyperlipidemia, unspecified; Z87.891 Personal history of nicotine dependence
CPT/HCPCS: 36415; 80053; 80306; 80307; 85025; 99283

== ENCOUNTER → 2023-07-04 09:36 | Outpatient (BNVA) | payer MEDICARE, SELFPAY | PROVIDERS: PCP Nurse Practitioner Family; Referring Provider Nurse Practitioner Family; Visit Provider Surgery | DX: K57.20 Diverticulitis of large intestine with perforation and abscess without bleeding (principal); K43.2 Incisional hernia without obstruction or gangrene | CPT/HCPCS: 99213 ==

== ENCOUNTER 2023-07-19 15:45 | Observation (INO) | payer MEDICARE, SELFPAY ==
[2023-07-19 15:49] VITALS: BP 163/92; PULSE 81; RESP 24; TEMP 36.6; O2SAT 97; BMI 35.2
[2023-07-19 16:32] LABS: Basophils % 0.4 %; Eosinophils % 0.2 %; Hematocrit 43.6 % (37-53); Lymphocytes # 0.9 10^3/uL (0.8-4.8); Lymphocytes % 8.4 %; Mean Corpuscular HGB Conc 35.1 g/dL (30-55); Mean Corpuscular Hemoglobin 32.6 pg (27-33); Mean Corpuscular Volume 92.8 fl (82-101); Mean Platelet Volume 10.1 fL (7.4-10.4); Monocytes # 0.6 10^3/uL (0.2-0.9); Monocytes % 5.3 %; Neutrophils # 8.98 10^3/uL (1.8-7.7); Neutrophils % 84.9 %; Nucleated Red Blood Cells % 0 %; Platelet Count 249 10^3/cmm (157-399); Red Cell Distribution Width 12.3 % (12.1-15.1); White Blood Count 10.57 10^3/uL (3.29-11.43)
[2023-07-19 16:51] LABS: Alanine Aminotransferase 54 U/L (0-41); Albumin Level 4.2 g/dL (3.5-5.2); Alkaline Phosphatase 72 U/L (40-130); Anion Gap 17.2 (5-19); Aspartate Amino Transferase 44 U/L (0-40); Blood Urea Nitrogen 10 mg/dL (8-23); Carbon Dioxide 25 mmol/L (22-29); Chloride 98 mmol/L (98-107); Globulin 2.8 g/dL (1.3-4.6); Glomerular Filtration Rate 97.6 mL/min (90-130); Glucose 137 mg/dL (65-115); Lipase 10 U/L (13-60); Osmolality Calculated 283 mOsm/kg (285-295); Potassium 4.2 mmol/L (3.5-5.1); Sodium 136 mmol/L (136-145); Total Bilirubin 0.5 mg/dL (0.15-1.2)
[2023-07-19 18:09] VITALS: BP 162/88; PULSE 90; RESP 14; O2SAT 98
[2023-07-19 18:31] LABS: Bilirubin Urine 1+ (Negative); Blood Urine Trace (Negative); Glucose Urine UA Norm (Normal); Ketones Urine 2+ (Negative); Nitrate Urine Negative (Negative); Protein Urine 1+ (Negative); Urine Appearance Clear (CLEAR); Urine Color Yellow (Yellow); Urobilinogen Urine 1 mg/dL (Negative); pH Urine 7 (5-7)
[2023-07-19 18:32] LABS: Add Urine Culture? No; Add Urine Microscopic? YES; Leukocyte Esterase Urine Trace (Negative); Mucus Urine 2+ /hpf; RBC Urine RARE /hpf (0-2); Squamous Epithelial Cell Urine RARE /hpf (0-5); WBC Urine 0-4 /hpf (0-5)
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
--- NOTE | 2023-07-19 18:47 | CTR_ITS ---
PROCEDURE INFORMATION: Exam: CT Abdomen And Pelvis With Contrast Exam date and time: 07/19/2023 7:26 PM Age: 62 years old Clinical indication: Abdominal pain; Prior surgery; Surgery date: 6+ months; Surgery type: Ptca. Hernia repair; Patient HX: Periumbilical pain with n/v. ; Additional info: Abdominal pain, nausea and vomiting TECHNIQUE: Imaging protocol: Computed tomography of the abdomen and pelvis with contrast. Radiation optimization: All CT scans at this facility use at least one of these dose optimization techniques: automated exposure control; mA and/or kV adjustment per patient size (includes targeted exams where dose is matched to clinical indication); or iterative reconstruction. Contrast material: OMNI 350; Contrast volume: 100 ml; Contrast route: INTRAVENOUS (IV); REPORTING DATA: Count of CT and Cardiac NM exams in prior 12 months: This patient has received 0 known CTs and 0 known cardiac nuclear medicine studies in the 12 months prior to the current study. COMPARISON: CT abdomen pelvis w con* [id number] 05/13/2022 11:42 AM RADIATION DOSE METRICS: Total DLP (mGy-cm): 1132.15 FINDINGS: Lungs: Right lower lobe calcified granuloma. Liver: Diffuse fatty infiltration of the liver with focal fatty sparing in the right liver lobe Gallbladder and bile ducts: Normal. No calcified stones. No ductal dilation. Pancreas: Normal. No ductal dilation. Spleen: Normal. No splenomegaly. Adrenal glands: Normal. No mass. Kidneys and ureters: . Left renal cortical cyst, Hounsfield units less than 20. No follow-up imaging is recommended. Mild perinephric stranding is most likely chronic. The kidneys are otherwise unremarkable. No calculus or hydronephrosis. Stomach and bowel: Clip near the GE junction. Appendix: The appendix is visualized and is normal. Intraperitoneal space: Unremarkable. No free air. No significant fluid collection. Vasculature: Calcified plaque in the arteries. No aneurysm. Lymph nodes: Unremarkable. No enlarged lymph nodes. Urinary bladder: Unremarkable as visualized. Reproductive: Unremarkable as visualized. Bones/joints: Degenerative changes of the spine. No fracture. Soft tissues: 4.3 cm supraumbilical hernia containing a loop of at least partially obstructed small bowel. The bowel proximal to the hernia measures 3.1 cm. Second supraumbilical hernia measuring 3.5 cm containing a short loop of nonobstructed small bowel. Anterior laparotomy scar. CT/CT abdomen pelvis w con* [id number] IMPRESSION: 1. Supraumbilical hernia containing a short loop of at least partially obstructed small bowel. 2. Second supraumbilical hernia containing a short loop of nonobstructed small bowel. COMMENTS: Consistent with the [place] [employer]'s Incidental Findings Committee white paper (J Am Mattie Radiol 2018): Any incidental renal lesion less than 1 cm or classified as too small to characterize, or any incidental cystic renal lesion characterized as simple-appearing, is likely benign. No follow-up imaging is recommended for these lesions per consensus recommendations based on imaging criteria.
[2023-07-19] MEDS: iohexol 350 mg/mL 500 mL Btl (per mL) IV (19:30)
[2023-07-19] MEDS: ketorolac 30 mg/mL INJ IVP ×2 (19:42→23:20)
[2023-07-19] MEDS: sodium chloride 0.9% 1,000 ML 999 ML IV (20:32)
[2023-07-19] MEDS: ondansetron 2 mg/ML SDV 2 mL 4 MG IVP ×2 (20:33→23:21)
--- NOTE | 2023-07-19 22:02 | XRR_ITS ---
PROCEDURE INFORMATION: Exam: XR Chest Exam date and time: 07/19/2023 10:05 PM Age: 62 years old Clinical indication: Device placement; Ng tube; Prior surgery; Surgery date: 6+ months; Surgery type: Ptca; Patient HX: Check S/P ng placement; Additional info: Ng tube placement verification TECHNIQUE: Imaging protocol: Radiologic exam of the chest. Views: 1 view. COMPARISON: CR XR chest 2V* [id number] 05/22/2023 1:45 PM FINDINGS: Tubes, catheters and devices: Gastric tube with tip in the mid stomach. Lungs: Unremarkable. No consolidation. Pleural spaces: Unremarkable. No pleural effusion. No pneumothorax. Heart/Mediastinum: Unremarkable. No cardiomegaly. Bones/joints: Unremarkable. XR/XR chest 1V [id number] IMPRESSION: No acute findings.
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
[2023-07-19 23:00] VITALS: BP 159/88; PULSE 79; RESP 17; TEMP 37.1; O2SAT 93
[2023-07-19] MEDS: pantoprazole 40 mg SDV IVP (23:20)
[2023-07-19] MEDS: sodium chloride 0.9% 1,000 ML 75 ML IV (23:21)
[2023-07-20] VITALS (16 sets, daily range): BP systolic 137–162; BP diastolic 80–93; PULSE 61–86; RESP 16–20; TEMP 36.4–36.9; O2SAT 91–95
[2023-07-20] MEDS: zolpidem 5 mg Tablet PO (00:58)
[2023-07-20] MEDS: dicyclomine 10 mg Capsule PO (00:59)
[2023-07-20] MEDS: ondansetron 2 mg/ML SDV 2 mL 4 MG IVP ×4 (03:56→22:00)
[2023-07-20] MEDS: promethazine 25 mg/mL SDV 1 mL IM (05:44)
[2023-07-20 05:55] LABS: Basophils % 0.4 %; Eosinophils # 0.1 10^3/uL (0.0-0.8); Hematocrit 42.4 % (37-53); Lymphocytes # 1.2 10^3/uL (0.8-4.8); Lymphocytes % 11.8 %; Mean Corpuscular HGB Conc 34.7 g/dL (30-55); Mean Corpuscular Hemoglobin 32.9 pg (27-33); Mean Corpuscular Volume 94.9 fl (82-101); Mean Platelet Volume 10.2 fL (7.4-10.4); Monocytes # 0.7 10^3/uL (0.2-0.9); Monocytes % 7.1 %; Neutrophils % 78.9 %; Nucleated Red Blood Cells % 0 %; Platelet Count 213 10^3/cmm (157-399); Red Blood Count 4.47 10^6/uL (3.85-5.65); Red Cell Distribution Width 12.4 % (12.1-15.1); White Blood Count 10.01 10^3/uL (3.29-11.43)
[2023-07-20] MEDS: ketorolac 30 mg/mL INJ IVP ×2 (06:07→14:12)
[2023-07-20 06:17] LABS: Alanine Aminotransferase 48 U/L (0-41); Albumin Level 3.8 g/dL (3.5-5.2); Alkaline Phosphatase 66 U/L (40-130); Aspartate Amino Transferase 41 U/L (0-40); Blood Urea Nitrogen 10 mg/dL (8-23); Calcium 8.4 mg/dL (8.5-10.5); Carbon Dioxide 25 mmol/L (22-29); Chloride 99 mmol/L (98-107); Globulin 2.7 g/dL (1.3-4.6); Glomerular Filtration Rate 97.6 mL/min (90-130); Glucose 138 mg/dL (65-115); Magnesium 1.6 mg/dL (1.7-2.3); Osmolality Calculated 283 mOsm/kg (285-295); Sodium 136 mmol/L (136-145); Total Bilirubin 0.5 mg/dL (0.15-1.2); Total Protein 6.5 g/dL (6.6-8.7)
[2023-07-20 06:18] LABS: Anion Gap 15.6 (5-19); Potassium 3.6 mmol/L (3.5-5.1)
[2023-07-20] MEDS: morphine 4 mg/mL SDV 1 mL 2 MG IVP ×4 (06:47→21:40)
[2023-07-20] MEDS: albuterol 2.5 mg/3 mL Neb INHALATION ×3 (08:48→19:52)
[2023-07-20] MEDS: budesonide 0.5 mg/2 mL Neb INHALATION ×2 (08:48→19:53)
[2023-07-20] MEDS: isosorbide mononitrate ER 30 mg Tablet 15 MG PO (09:14)
[2023-07-20] MEDS: metoprolol tartrate 50 mg Tablet PO ×2 (09:14→17:39)
[2023-07-20] MEDS: amlodipine 5 mg Tablet 10 MG PO (09:15)
[2023-07-20] MEDS: levothyroxine 200 mcg Tablet PO (09:15)
[2023-07-20] MEDS: lisinopril 20 mg Tablet 40 MG PO (09:16)
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
[2023-07-20] MEDS: pneumococcal (23 valent) SDV 0.5 mL IM (10:53)
[2023-07-20] MEDS: pantoprazole 40 mg SDV IVP ×2 (10:59→22:00)
[2023-07-20] MEDS: sodium chloride 0.9% 1,000 ML 125 ML IV ×2 (14:00→22:35)
--- NOTE | 2023-07-20 16:06 | PM.PN ---
Subjective Subjective: Admitted overnight. H&P and labs appreciated. Today morning patient was seen by surgeon and hernia was reduced. He has NG tube in placement. Patient still is awaiting for passing flatus or having bowel movements. Dates he is comfortable though complaining of pain which is restricting his movements. Denies any nausea. Has remained hemodynamically stable and afebrile on room air. Vitals/I&O/Wt Last Vital Signs Temp 98.0 F 07/20/23 11:30 Pulse 81 07/20/23 11:30 Resp 16 07/20/23 12:28 BP 150/85 07/20/23 11:30 Pulse Ox 94 07/20/23 11:30 O2 Del Method Room Air 07/20/23 11:30 07/20/23 07/20/23 07/20/23 06:59 14:59 22:59 Intake Total 1000 / 1000 Balance 1000 / 1000 Weight last 48 hrs Weight 117.934 kg Physical Exam Narrative: He is alert awake oriented x3 morbidly obese not in acute distress Chest is clear to auscultation bilaterally Cardiovascular normal heart sounds regular rhythm Abdomen soft distended mildly diffuse tenderness present, hyperactive bowel sounds A wide midline scar seen from subxiphoid to suprapubic area. Extremities no edema seen Data 07/20/23 05:05 07/20/23 05:05 A&P Assessment and plan (1) Partial small bowel obstruction: (2) Recurrent incisional hernia: Plan Appreciate surgical recommendations. Conservative treatment. Hernia reduced. Awaiting bowel functions. Continue with NG tube placement. Advance diet as per surgical team. Protonix, Zofran as needed. Morphine 2 mg every 4 hours as needed. Early ambulation. Hypertension: Goal blood pressure less than 140/90 MAG. Switch to IV antihypertensive for now. Once tolerating oral we will restart home antihypertensives. Full code Protonix for PUD prophylaxis Low probability of DVT. SCDs for DVT prophylaxis Attestations Medical Necessity Statement*: Requires further hospitalization for management of small bowel obstruction in setting of recurrent incisional hernia while resumption of bowel functions are awaited Diagnoses Partial small bowel obstruction K56.600 Recurrent incisional hernia K43.2
[2023-07-20 16:57] LABS: Iron 97 ug/dL (59-158); Percent Saturation 26.2 % (20-50); Total Iron Binding Capacity 369 mcg/dl; Unsaturated Iron Binding 272 ug/dL (112-347)
[2023-07-20 17:08] LABS: Thyroid Stimulating Hormone 2.89 uIU/mL (0.27-4.20)
[2023-07-20 17:12] LABS: Vitamin B12 202 pg/mL (232-1245)
[2023-07-20] MEDS: cyanocobalamin 1,000 mcg/mL SDV 1000 MCG IM (18:29)
[2023-07-21 03:44] VITALS: BP 150/91; PULSE 70; RESP 15; TEMP 36.9; O2SAT 94
[2023-07-21 04:48] LABS: Basophils % 0.6 %; Eosinophils # 0.2 10^3/uL (0.0-0.8); Eosinophils % 2.8 %; Hematocrit 39.1 % (37-53); Lymphocytes # 1.4 10^3/uL (0.8-4.8); Lymphocytes % 21.7 %; Mean Corpuscular HGB Conc 34.5 g/dL (30-55); Mean Corpuscular Hemoglobin 32.8 pg (27-33); Mean Corpuscular Volume 95.1 fl (82-101); Monocytes # 0.6 10^3/uL (0.2-0.9); Monocytes % 8.9 %; Neutrophils # 4.29 10^3/uL (1.8-7.7); Neutrophils % 65.7 %; Nucleated Red Blood Cells % 0 %; Platelet Count 174 10^3/cmm (157-399); Red Blood Count 4.11 10^6/uL (3.85-5.65); Red Cell Distribution Width 12.5 % (12.1-15.1); White Blood Count 6.53 10^3/uL (3.29-11.43)
[2023-07-21 05:11] LABS: Chol HDL Ratio 2.73 mg/dL (1.0-5.00); Cholesterol 131 mg/dL (0-200); HDL Cholesterol 48 mg/dL (60-100); LDL Cholesterol Calculated 43 mg/dL (50-129); Magnesium 1.6 mg/dL (1.7-2.3); Triglycerides 201 mg/dL (0-150); VLDL Cholestrol Calculation 40 mg/dL (0-30)
[2023-07-21 05:12] LABS: Alanine Aminotransferase 39 U/L (0-41); Albumin Level 3.6 g/dL (3.5-5.2); Alkaline Phosphatase 59 U/L (40-130); Anion Gap 13.5 (5-19); Aspartate Amino Transferase 33 U/L (0-40); Blood Urea Nitrogen 8 mg/dL (8-23); Calcium 7.9 mg/dL (8.5-10.5); Carbon Dioxide 25 mmol/L (22-29); Chloride 104 mmol/L (98-107); Glomerular Filtration Rate 113.9 mL/min (90-130); Glucose 116 mg/dL (65-115); Osmolality Calculated 287 mOsm/kg (285-295); Potassium 3.5 mmol/L (3.5-5.1); Sodium 139 mmol/L (136-145); Total Bilirubin 0.3 mg/dL (0.15-1.2); Total Protein 5.6 g/dL (6.6-8.7)
[2023-07-21 05:23] LABS: Estmated Average Glucose 126
[2023-07-21 05:59] LABS: Folate Level < 20.0 ng/mL (4.5-32.2)
[2023-07-21] MEDS: sodium chloride 0.9% 1,000 ML 125 ML IV (06:15)
[2023-07-21 07:09] VITALS: BP 152/93; PULSE 69; RESP 19; TEMP 36.7; O2SAT 94
[2023-07-21 07:26] VITALS: PULSE 67; RESP 16; O2SAT 92
[2023-07-21] MEDS: isosorbide mononitrate ER 30 mg Tablet 15 MG PO (08:23)
[2023-07-21] MEDS: amlodipine 5 mg Tablet 10 MG PO (08:23)
[2023-07-21] MEDS: levothyroxine 200 mcg Tablet PO (08:23)
[2023-07-21] MEDS: metoprolol tartrate 50 mg Tablet PO (08:23)
[2023-07-21] MEDS: lisinopril 20 mg Tablet 40 MG PO (08:23)
[2023-07-21] MEDS: cyanocobalamin 1,000 mcg/mL SDV 1000 MCG IM (08:24)
[2023-07-21 09:03] VITALS: RESP 14
[2023-07-21] MEDS: morphine 4 mg/mL SDV 1 mL 2 MG IVP (09:03)
[2023-07-21] MEDS: ondansetron 2 mg/ML SDV 2 mL 4 MG IVP (09:07)
[2023-07-21] MEDS: pantoprazole 40 mg SDV IVP (11:15)
[2023-07-21 11:25] VITALS: BP 123/76; PULSE 60; RESP 20; TEMP 36.7; O2SAT 95
--- NOTE | 2023-07-21 12:47 | PM.PN ---
Subjective Subjective: Patient no longer having nausea and vomiting. Abdominal pain controlled. Passing flatus and having bowel movements. Tolerating clear liquids Vitals/I&O/Wt Last Vital Signs Temp 98.0 F 07/21/23 11:25 Pulse 60 07/21/23 11:25 Resp 20 H 07/21/23 11:25 BP 123/76 07/21/23 11:25 Pulse Ox 95 07/21/23 11:25 O2 Del Method Room Air 07/21/23 11:25 07/20/23 07/21/23 07/21/23 22:59 06:59 14:59 Intake Total 1470.5 / 2470.5 958.333 / 3428.833 960 / 960 Balance 1470.5 / 2270.5 958.333 / 3228.833 960 / 960 Weight last 48 hrs Weight 260 lb Physical Exam Narrative: General: No acute distress, awake alert and oriented x3 Abdomen: Soft, mild tenderness over incisional hernias which are reducible, no guarding rebound or masses Data 07/21/23 04:18 07/21/23 04:18 A&P Assessment and plan (1) Recurrent incisional hernia: (2) Partial small bowel obstruction: Plan Full liquid diet I still believe that it is best for him to receive an elective sigmoidectomy to prevent repeated complicated diverticulitis and possible colostomy in the future. Ideally his hernias get repaired afterwards. I will have my office refer him to [facility]. Surgically stable for discharge He may have a soft diet tomorrow and regular diet there after Medical management per hospitalist Attestations Medical Necessity Statement*: Per primary Coding Level of Care Code 25948 Diagnoses Recurrent incisional hernia K43.2 Partial small bowel obstruction K56.600
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
[2023-07-21 14:21] VITALS: BP 123/76; PULSE 60; RESP 20; TEMP 36.7; O2SAT 95
== END 2023-07-21 14:22 | disposition home or self-care (01) | DRG 394 ==
LOC: ER 21:24 → MEDSURG 07-20 08:06
PROVIDERS: Physician Assistant; Admitting Provider Internal Medicine; Emergency Provider Family Medicine; PCP Nurse Practitioner Family; Visit Provider Student in an Organized Health Care Education/Training Program
DX: K43.0 Incisional hernia with obstruction, without gangrene (principal); K56.690 Other partial intestinal obstruction; I10 Essential (primary) hypertension; E11.9 Type 2 diabetes mellitus without complications; Z79.82 Long term (current) use of aspirin; Z79.51 Long term (current) use of inhaled steroids; Z79.84 Long term (current) use of oral hypoglycemic drugs; I25.10 Atherosclerotic heart disease of native coronary artery without angina pectoris; Z86.19 Personal history of other infectious and parasitic diseases; E78.5 Hyperlipidemia, unspecified; E03.9 Hypothyroidism, unspecified; Z87.891 Personal history of nicotine dependence
CPT/HCPCS: 36415; 71045; 74177; 80053; 80061; 81001; 82607; 82746; 83036; 83540; 83550; 83690; 83735; 84443; 85025; 90471; 90732; 94640; 96361; 96372; 96374; 96375; 99285; C9113; G0378; J1885; J2270; J2405; J2550; J3420; J7030; J7613; J7626; Q9967

== ENCOUNTER → 2023-09-03 11:56 | Outpatient (BNVA) | payer MEDICARE, SELFPAY | PROVIDERS: PCP Nurse Practitioner Family; Visit Provider Internal Medicine | DX: R06.00 Dyspnea, unspecified (principal); I25.10 Atherosclerotic heart disease of native coronary artery without angina pectoris; I10 Essential (primary) hypertension; Z87.891 Personal history of nicotine dependence | CPT/HCPCS: 99214 ==

== ENCOUNTER 2023-10-03 09:12 | Emergency (ER) | payer MEDICARE, SELFPAY ==
[2023-10-03 09:19] VITALS: BP 176/103; PULSE 73; RESP 17; TEMP 36.8; O2SAT 96; BMI 36.6
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
[2023-10-03 09:35] VITALS: BP 174/103; PULSE 63; RESP 18; O2SAT 92
--- NOTE | 2023-10-03 09:44 | CTR_ITS ---
PROCEDURE INFORMATION: Exam: CT Abdomen And Pelvis With Contrast Exam date and time: 10/03/2023 10:28 AM Age: 63 years old Clinical indication: Abdominal pain; Generalized; Prior surgery; Surgery date: 6+ months; Surgery type: Hernia knee back; Additional info: Abd pain TECHNIQUE: Imaging protocol: Computed tomography of the abdomen and pelvis with contrast. Radiation optimization: All CT scans at this facility use at least one of these dose optimization techniques: automated exposure control; mA and/or kV adjustment per patient size (includes targeted exams where dose is matched to clinical indication); or iterative reconstruction. Contrast material: OMNI 350; Contrast volume: 100 ml; Contrast route: INTRAVENOUS (IV); REPORTING DATA: Count of CT and Cardiac NM exams in prior 12 months: This patient has received [address] and 0 known cardiac nuclear medicine studies in the 12 months prior to the current study. COMPARISON: CT abdomen pelvis w con* [id number] 07/19/2023 7:26 PM RADIATION DOSE METRICS: Total DLP (mGy-cm): 1222.13 FINDINGS: Liver: There is fatty infiltration of the liver. Gallbladder and bile ducts: Normal. No calcified stones. No ductal dilation. Pancreas: Normal. No ductal dilation. Spleen: Normal. No splenomegaly. Adrenal glands: Normal. No mass. Kidneys and ureters: There is an exophytic left renal cyst again noted. Otherwise the kidneys appear normal. Stomach and bowel: There is a small bowel obstruction again seen secondary to an incarcerated supraumbilical anterior abdominal wall hernia. There appears to be a catheter fragment in the dilated small bowel which protrudes into the hernia. Please see image 54 of series 4. There is diverticulosis without evidence of diverticulitis. Appendix: No evidence of appendicitis. Intraperitoneal space: Unremarkable. No free air. No significant fluid collection. Vasculature: There is moderate atherosclerotic disease. There is no abdominal aortic aneurysm. Lymph nodes: Unremarkable. No enlarged lymph nodes. Urinary bladder: Unremarkable as visualized. Reproductive: Unremarkable as visualized. Bones/joints: Multiple old left rib fractures are identified. Soft tissues: Unremarkable. CT/CT abdomen pelvis w con* [id number] IMPRESSION: 1. Small bowel obstruction secondary to an incarcerated supraumbilical anterior abdominal wall hernia. There appears to be a catheter fragment seen within the dilated small bowel entering the hernia. Clinical correlation is recommended. 2. Hepatic steatosis. 3. Diverticulosis. THIS REPORT CONTAINS FINDINGS THAT MAY BE CRITICAL TO PATIENT CARE. The findings were verbally communicated via telephone conference with Dr. Xavier at 11:00 AM NAIL SETTER on 10/03/2023. The findings were acknowledged and understood.
[2023-10-03] MEDS: sodium chloride 0.9% 1,000 ML 999 ML IV (09:46)
[2023-10-03] MEDS: ondansetron 2 mg/ML SDV 2 mL 4 MG IVP ×2 (09:46→11:45)
[2023-10-03 09:52] LABS: Basophils % 0.3 %; Eosinophils % 0.3 %; Lymphocytes # 0.9 10^3/uL (0.8-4.8); Lymphocytes % 9.2 %; Mean Corpuscular HGB Conc 34.2 g/dL (30-55); Mean Corpuscular Hemoglobin 32.6 pg (27-33); Mean Corpuscular Volume 95.3 fl (82-101); Mean Platelet Volume 10.1 fL (7.4-10.4); Monocytes # 0.5 10^3/uL (0.2-0.9); Monocytes % 5.5 %; Neutrophils # 7.74 10^3/uL (1.8-7.7); Nucleated Red Blood Cells % 0 %; Platelet Count 239 10^3/cmm (157-399); Red Blood Count 4.51 10^6/uL (3.85-5.65); Red Cell Distribution Width 12.8 % (12.1-15.1); White Blood Count 9.22 10^3/uL (3.29-11.43)
[2023-10-03 10:11] LABS: Alanine Aminotransferase 62 U/L (0-41); Albumin Level 3.9 g/dL (3.5-5.2); Alkaline Phosphatase 81 U/L (40-130); Anion Gap 16.6 (5-19); Aspartate Amino Transferase 48 U/L (0-40); Blood Urea Nitrogen 10 mg/dL (8-23); Calcium 9.2 mg/dL (8.5-10.5); Carbon Dioxide 28 mmol/L (22-29); Chloride 98 mmol/L (98-107); Glucose 163 mg/dL (65-115); Lipase 14 U/L (13-60); Osmolality Calculated 289 mOsm/kg (285-295); Potassium 4.6 mmol/L (3.5-5.1); Sodium 138 mmol/L (136-145); Total Bilirubin 0.4 mg/dL (0.15-1.2); Total Protein 6.9 g/dL (6.6-8.7)
[2023-10-03] MEDS: morphine 4 mg/mL SDV 1 mL IVP ×2 (10:21→11:45)
[2023-10-03] MEDS: iohexol 350 mg/mL 500 mL Btl (per mL) IV (10:31)
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
[2023-10-03 11:29] LABS: Lactic Sepsis W/Reflex 2.4 mmol/L (0.5-2.2)
[2023-10-03 13:00] LABS: Reflex Lactate Order REFLEX LACTIC ORDERD
--- NOTE | 2023-10-03 13:15 | DCPLANNER ---
Message was sent to general surgery to follow up with Dr. Domínguez. Clinic to contact patient. 10/03 at [id number]
== END 2023-10-03 11:46 | disposition home or self-care (01) ==
PROVIDERS: Emergency Provider Family Medicine; PCP Nurse Practitioner Family
DX: K43.6 Other and unspecified ventral hernia with obstruction, without gangrene (principal); Z79.82 Long term (current) use of aspirin; Z79.84 Long term (current) use of oral hypoglycemic drugs; Z86.19 Personal history of other infectious and parasitic diseases; I10 Essential (primary) hypertension; E78.5 Hyperlipidemia, unspecified; Z87.891 Personal history of nicotine dependence
CPT/HCPCS: 74177; 80053; 83605; 83690; 85025; 96374; 96375; 96376; 99285; J2270; J2405; J7030; Q9967

== ENCOUNTER 2023-10-04 09:59 | Inpatient (IN) | payer MEDICARE, SELFPAY ==
[2023-10-04] VITALS (8 sets, daily range): BP systolic 146–166; BP diastolic 90–105; PULSE 61–89; RESP 17–20; TEMP 36.5–36.7; O2SAT 95–97; BMI 35.9
--- NOTE | 2023-10-04 10:22 | CTR_ITS ---
PROCEDURE INFORMATION: Exam: CT Abdomen And Pelvis Without Contrast Exam date and time: 10/04/2023 10:30 AM Age: 63 years old Clinical indication: Abdominal pain; Localized; Other: Central; Prior surgery; Surgery date: 6+ months; Surgery type: Hernia, back TECHNIQUE: Imaging protocol: Computed tomography of the abdomen and pelvis without contrast. Radiation optimization: All CT scans at this facility use at least one of these dose optimization techniques: automated exposure control; mA and/or kV adjustment per patient size (includes targeted exams where dose is matched to clinical indication); or iterative reconstruction. REPORTING DATA: Count of CT and Cardiac NM exams in prior 12 months: This patient has received 2 known CTs and 0 known cardiac nuclear medicine studies in the 12 months prior to the current study. COMPARISON: 1. CT abdomen pelvis w con* [id number] 10/03/2023 10:[address] abdomen/pelvis 07/19/2023 RADIATION DOSE METRICS: Total DLP (mGy-cm): 1206.76 FINDINGS: Lungs: Visualized lung bases are grossly clear. Liver: Hepatic steatosis. No hepatic masses. Gallbladder and bile ducts: Gallbladder demonstrates internal vicarious excretion of contrast and is otherwise normal in appearance. No intrahepatic or extrahepatic biliary dilation. Pancreas: Fatty atrophy of the pancreas. Spleen: The spleen is unremarkable. Adrenal glands: The adrenal glands are unremarkable. Kidneys and ureters: Simple exophytic cyst in the left kidney measuring up to 2.0 cm, unchanged. Mild bilateral nonspecific perinephric stranding. No hydronephrosis or hydroureter. No evidence of renal stones. Stomach and bowel: See Soft tissues finding. Appendix: No evidence of acute appendicitis. Intraperitoneal space: Mild fat tissue stranding about the ventral abdominal hernias in the anterior abdomen. No focal free fluid. Vasculature: Scattered calcific disease of the aorta and its major branches. Lymph nodes: No suspicious lymphadenopathy. Urinary bladder: Urinary bladder is within normal limits. Reproductive: Reproductive structures are within normal limits as visualized. Bones/joints: No acute osseous findings. Multiple chronic/healed left rib fracture deformities. Soft tissues: Small bilateral fat containing inguinal hernias. Remote postsurgical changes of ventral midline incision. Two distinct broad-based supraumbilical hernias. The superior of the two hernias demonstrates base measuring roughly 4.3 x 1.4 cm and contains a loop of small bowel without evidence of strangulation or obstruction. The inferior of the two hernias demonstrates a base measuring roughly 4.9 x 2.4 cm and contains a loop of small bowel. The efferent branch of bowel is nondistended. The afferent branch of small bowel is fluid-filled and distended up to 3.1 cm. These findings are similar in presentation to that of CT abdomen and pelvis 10/03/[address] abdomen/pelvis 07/19/2023. There is a linear dense structure located within the lumen of this loop of small bowel within the umbilical hernia, measuring roughly 4 cm in length (axial series 3, images 49-50). This is unchanged from 10/03/2023 and was not present on 07/19/2023. CT/CT abdomen pelvis wo con [id number] IMPRESSION: 1. Redemonstrated supraumbilical hernia containing a loop of bowel, with at least partial small bowel obstruction, with a 4 cm long linear dense object, possibly a retained catheter fragment, located intraluminally within the herniated bowel. These findings are not significantly changed from 10/03/2023. 2. Redemonstrated additional supraumbilical hernia located superior to the above-described supraumbilical hernia, containing a loop of small bowel, without evidence of obstruction or strangulation. This is unchanged from prior. 3. Hepatic steatosis.
[2023-10-04 11:09] LABS: Basophils % 0.4 %; Eosinophils # 0.1 10^3/uL (0.0-0.8); Eosinophils % 0.6 %; Hematocrit 44.5 % (37-53); Lymphocytes # 1.2 10^3/uL (0.8-4.8); Lymphocytes % 12.7 %; Mean Corpuscular HGB Conc 34.2 g/dL (30-55); Mean Corpuscular Hemoglobin 33.7 pg (27-33); Mean Corpuscular Volume 98.7 fl (82-101); Mean Platelet Volume 9.9 fL (7.4-10.4); Monocytes # 0.6 10^3/uL (0.2-0.9); Monocytes % 6.5 %; Neutrophils # 7.22 10^3/uL (1.8-7.7); Neutrophils % 79.4 %; Nucleated Red Blood Cells % 0 %; Platelet Count 230 10^3/cmm (157-399); Red Blood Count 4.51 10^6/uL (3.85-5.65); Red Cell Distribution Width 12.9 % (12.1-15.1); White Blood Count 9.09 10^3/uL (3.29-11.43)
[2023-10-04 11:30] LABS: Alanine Aminotransferase 56 U/L (0-41); Albumin Level 3.9 g/dL (3.5-5.2); Alkaline Phosphatase 79 U/L (40-130); Aspartate Amino Transferase 44 U/L (0-40); Blood Urea Nitrogen 10 mg/dL (8-23); Calcium 8.7 mg/dL (8.5-10.5); Carbon Dioxide 25 mmol/L (22-29); Chloride 99 mmol/L (98-107); Globulin 3.1 g/dL (1.3-4.6); Glucose 141 mg/dL (65-115); Osmolality Calculated 279 mOsm/kg (285-295); Sodium 134 mmol/L (136-145); Total Bilirubin 0.6 mg/dL (0.15-1.2)
[2023-10-04 11:31] LABS: Lactic Sepsis W/Reflex 1.6 mmol/L (0.5-2.2)
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
[2023-10-04] MEDS: morphine 4 mg/mL SDV 1 mL IVP ×2 (12:49→15:08)
[2023-10-04] MEDS: ondansetron 2 mg/ML SDV 2 mL 4 MG IVP (12:50)
[2023-10-04] MEDS: sodium chloride 0.9% 1,000 ML 999 ML IV (12:50)
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
--- NOTE | 2023-10-04 15:20 | XRR_ITS ---
PROCEDURE INFORMATION: Exam: XR Chest Exam date and time: 10/04/2023 4:30 PM Age: 63 years old Clinical indication: Device placement; Patient HX: Ng tube confirmation TECHNIQUE: Imaging protocol: Radiologic exam of the chest. Views: 1 view. COMPARISON: CR XR chest 1V [id number] 07/19/2023 10:05 PM FINDINGS: Tubes, catheters and devices: NG tube terminates in the stomach. Lungs: Unremarkable. No consolidation. Pleural spaces: Unremarkable. No pleural effusion. No pneumothorax. Heart/Mediastinum: Unremarkable. No cardiomegaly. Bones/joints: Unremarkable. XR/XR chest 1V portable [id number] IMPRESSION: NG tube terminates in the stomach.
--- NOTE | 2023-10-04 16:00 | XRR_ITS ---
PROCEDURE INFORMATION: Exam: XR Chest Exam date and time: 10/04/2023 6:09 PM Age: 63 years old Clinical indication: Cardiovascular condition or disease; Prior surgery; Surgery date: 6+ months; Patient HX: Pre op high risk procedure; Copd; HTN; HX cardiac stent 2014; Sbo TECHNIQUE: Imaging protocol: Radiologic exam of the chest. Views: 1 view. COMPARISON: CR (CHEST, ) 10/04/2023 4:30 PM FINDINGS: Tubes, catheters and devices: NG tube again noted. Lungs: Unremarkable. No consolidation. Pleural spaces: Unremarkable. No pleural effusion. No pneumothorax. Heart/Mediastinum: Unremarkable. No cardiomegaly. Bones/joints: Unremarkable. XR/XR chest 1V [id number] IMPRESSION: No acute findings.
--- NOTE | 2023-10-04 16:00 | ECG_ITS ---
[facility] Test Date: 2023-10-04 Pat Name: Db Mcdonald Department: Room: 272 Gender: Male Collection Teller: : 1960 Requested By: Nela Pryor Order Number: [id number] Emelyn MD: Mohit Mujica M.D. Measurements Intervals [place] Rate: 65 P: 58 IN: 176 QRS: 25 QRSD: 82 T: 19 QT: 400 QTc: 416 Interpretive Statements SINUS RHYTHM Normal EKG Compared to ECG 03/31/2022 11:07:02 No significant changes Electronically Signed On 10-05-2023 14:02:20 CARGO TRIMMER by Mohit Mujica M.D. [id number]
[2023-10-04] MEDS: sodium chloride 0.9% 1,000 ML 100 ML IV (16:32)
[2023-10-04] MEDS: heparin 5,000 unit/mL INJ 1 mL 5000 UNIT SUBCUT (17:19)
[2023-10-04] MEDS: morphine 4 mg/mL SDV 1 mL 2 MG IVP (17:22)
[2023-10-04 17:33] LABS: Lactic Sepsis W/Reflex 1.2 mmol/L (0.5-2.2)
[2023-10-04 21:10] LABS: Glucose Point of Care 103 mg/dL (70-110)
[2023-10-04] MEDS: HYDROmorphone 1 mg/mL INJ 1 mL 0.2 MG IVP (22:44)
[2023-10-04] MEDS: piperacillin-tazobactam 3.375 GM in sodium chloride 0.9% (plus) 50 ML IV (22:58)
[2023-10-05] VITALS (12 sets, daily range): BP systolic 153–174; BP diastolic 77–107; PULSE 59–64; RESP 16–19; TEMP 36.6–37.1; O2SAT 94–96
[2023-10-05] MEDS: heparin 5,000 unit/mL INJ 1 mL 5000 UNIT SUBCUT ×2 (02:23→14:58)
[2023-10-05] MEDS: sodium chloride 0.9% 1,000 ML 100 ML IV ×2 (02:23→12:09)
[2023-10-05] MEDS: piperacillin-tazobactam 3.375 GM in sodium chloride 0.9% (plus) 50 ML IV ×3 (03:00→20:09)
[2023-10-05] MEDS: morphine 4 mg/mL SDV 1 mL 2 MG IVP ×4 (06:31→22:18)
[2023-10-05 06:35] LABS: Basophils % 0.6 %; Eosinophils # 0.1 10^3/uL (0.0-0.8); Eosinophils % 1.7 %; Hematocrit 42.8 % (37-53); Lymphocytes # 1.1 10^3/uL (0.8-4.8); Lymphocytes % 17.5 %; Mean Corpuscular HGB Conc 34.1 g/dL (30-55); Mean Corpuscular Hemoglobin 33.5 pg (27-33); Mean Corpuscular Volume 98.2 fl (82-101); Mean Platelet Volume 9.9 fL (7.4-10.4); Monocytes # 0.5 10^3/uL (0.2-0.9); Monocytes % 7.4 %; Neutrophils # 4.72 10^3/uL (1.8-7.7); Neutrophils % 72.3 %; Nucleated Red Blood Cells % 0 %; Platelet Count 216 10^3/cmm (157-399); Red Blood Count 4.36 10^6/uL (3.85-5.65); Red Cell Distribution Width 12.7 % (12.1-15.1); White Blood Count 6.52 10^3/uL (3.29-11.43)
[2023-10-05 07:00] LABS: Anion Gap 16.1 (5-19); Blood Urea Nitrogen 8 mg/dL (8-23); Carbon Dioxide 25 mmol/L (22-29); Chloride 100 mmol/L (98-107); Glomerular Filtration Rate 97.3 mL/min (90-130); Glucose 168 mg/dL (65-115); Osmolality Calculated 286 mOsm/kg (285-295); Potassium 4.1 mmol/L (3.5-5.1); Sodium 137 mmol/L (136-145)
[2023-10-05 07:02] LABS: Alanine Aminotransferase 47 U/L (0-41); Albumin Level 3.7 g/dL (3.5-5.2); Alkaline Phosphatase 76 U/L (40-130); Anion Gap 15.6 (5-19); Aspartate Amino Transferase 35 U/L (0-40); Blood Urea Nitrogen 8 mg/dL (8-23); Calcium 8.2 mg/dL (8.5-10.5); Carbon Dioxide 27 mmol/L (22-29); Chloride 99 mmol/L (98-107); Globulin 2.7 g/dL (1.3-4.6); Glucose 132 mg/dL (65-115); Magnesium 1.9 mg/dL (1.7-2.3); Osmolality Calculated 286 mOsm/kg (285-295); Potassium 3.6 mmol/L (3.5-5.1); Sodium 138 mmol/L (136-145); Total Bilirubin 0.4 mg/dL (0.15-1.2); Total Protein 6.4 g/dL (6.6-8.7)
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
--- NOTE | 2023-10-05 18:16 | XRR_ITS ---
PROCEDURE INFORMATION: Exam: XR Chest Exam date and time: 10/05/2023 7:29 PM Age: 63 years old Clinical indication: Device placement; Ng tube; Prior surgery; Surgery date: 6+ months; Surgery type: Coronary stent; Patient HX: Check S/P ng placement TECHNIQUE: Imaging protocol: Radiologic exam of the chest. Views: 1 view. COMPARISON: CR (CHEST, ) 10/04/2023 6:09 PM FINDINGS: Lungs: Unremarkable. No consolidation. Pleural spaces: Unremarkable. No pleural effusion. No pneumothorax. Heart/Mediastinum: Unremarkable. No cardiomegaly. Bones/joints: Unremarkable. Gastrointestinal tract: NG tube tracks into the stomach. XR/XR chest 1V portable [id number] IMPRESSION: NG tube tracks into the stomach.
[2023-10-05] MEDS: ondansetron 2 mg/ML SDV 2 mL 4 MG IVP (18:26)
[2023-10-06] VITALS (24 sets, daily range): BP systolic 134–209; BP diastolic 82–134; PULSE 52–128; RESP 16–20; TEMP 36.4–37.2; O2SAT 92–98
[2023-10-06] MEDS: morphine 4 mg/mL SDV 1 mL 2 MG IVP (02:36)
[2023-10-06] MEDS: piperacillin-tazobactam 3.375 GM in sodium chloride 0.9% (plus) 50 ML IV ×3 (04:01→19:51)
[2023-10-06 05:07] LABS: Basophils % 0.6 %; Eosinophils # 0.2 10^3/uL (0.0-0.8); Eosinophils % 2.4 %; Hematocrit 42.2 % (37-53); Lymphocytes # 1.4 10^3/uL (0.8-4.8); Lymphocytes % 20.5 %; Mean Corpuscular HGB Conc 33.4 g/dL (30-55); Mean Corpuscular Hemoglobin 32.9 pg (27-33); Mean Corpuscular Volume 98.4 fl (82-101); Mean Platelet Volume 9.9 fL (7.4-10.4); Monocytes # 0.6 10^3/uL (0.2-0.9); Monocytes % 8.3 %; Neutrophils # 4.48 10^3/uL (1.8-7.7); Neutrophils % 67.6 %; Nucleated Red Blood Cells % 0 %; Platelet Count 213 10^3/cmm (157-399); Red Blood Count 4.29 10^6/uL (3.85-5.65); Red Cell Distribution Width 12.6 % (12.1-15.1); White Blood Count 6.63 10^3/uL (3.29-11.43)
[2023-10-06 05:25] LABS: Anion Gap 13.7 (5-19); Blood Urea Nitrogen 8 mg/dL (8-23); Calcium 7.9 mg/dL (8.5-10.5); Carbon Dioxide 26 mmol/L (22-29); Chloride 98 mmol/L (98-107); Glomerular Filtration Rate 97.3 mL/min (90-130); Glucose 107 mg/dL (65-115); Magnesium 1.9 mg/dL (1.7-2.3); Osmolality Calculated 277 mOsm/kg (285-295); Potassium 3.7 mmol/L (3.5-5.1); Sodium 134 mmol/L (136-145)
--- NOTE | 2023-10-06 07:45 | PM.PN ---
Vitals/I&O/Wt Last Vital Signs Temp 98.2 F 10/06/23 04:00 Pulse 52 L 10/06/23 06:00 Resp 18 10/06/23 04:00 BP 159/84 10/06/23 04:00 Pulse Ox 95 10/06/23 04:00 O2 Del Method Room Air 10/05/23 16:00 10/05/23 10/06/23 10/06/23 22:59 06:59 14:59 Intake Total 855 / 1881.667 50 / 1931.667 Output Total 650 / 1650 Balance 855 / 881.667 -600 / 281.667 Weight last 48 hrs Weight 265 lb 9.6 oz Weight 267 lb 2 oz Weight 265 lb Weight 265 lb Data 10/06/23 04:37 10/06/23 04:37 Micro: Microbiology 10/04/23 14:27 Blood Culture - Preliminary Blood NEGATIVE TO DATE 10/04/23 14:11 Blood Culture - Preliminary Blood NEGATIVE TO DATE A&P Assessment and plan (1) Incisional hernia: (2) Partial small bowel obstruction: Plan Laparoscopic incisional hernia repairs with mesh The risks and benefits of the procedure, including but not limited to, bleeding, infection, mesh infection requiring mesh excision antibiotic therapy and repeat surgery, damage surrounding structures, conversion to an open procedure, scar, numbness, pain, and/or recurrence were explained to the patient. Patient is understanding of the risks and wishes to proceed. Attestations Medical Necessity Statement*: per primary Coding Level of Care Code Acute Code for [facility] Diagnoses Incisional hernia K43.2 Partial small bowel obstruction K56.600
[2023-10-06] MEDS: lidocaine-epi 2% 20 mL INJ INJECTION (08:34)
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
--- NOTE | 2023-10-06 10:07 | P.OP_ITS ---
Operative Report Date of procedure: October 06, 2023 Pre-op diagnosis: recurrent incarcerated incisional hernias Post-op diagnosis: Recurrent incarcerated incisional hernias x3 Procedure done: Laparoscopic repair of recurrent incarcerated incisional hernias x3 with mesh Extensive lysis of adhesions Implants: 6 inch round Ventralight mesh Specimens removed/disposition: Hernia sac Surgeon: Ruben Domínguez DO Anesthesia: General Estimated blood loss (mL): 5 Complications: None apparent Findings: 3 total hernias, 2 of which were containing small bowel. Total diameter of 3 individual hernias measured up to 6 cm in diameter. Extensive lysis of adhesions performed for 90 minutes Brief History: Is a very pleasant 63-year-old gentleman with a history of multiple abdominal surgeries including 3 hernia repairs who presented to the hospital with a partial small bowel obstruction secondary to incarcerated incisional hernias. Laparoscopic repair with mesh was indicated. The risk and benefits were explained and documented. Procedure: Patient was wheeled the operative room placed on the OR table in supine position. The abdomen was inspected prepped and draped in usual sterile fashion . A timeout was performed. All present were in agreement. 2% lidocaine with epinephrine was used to anesthetize the skin over the left upper quadrant. A 5 mm incision was then made with a 15 blade scalpel. A Veress needle was attempted to create intra-abdominal insufflation at 15 mmHg. This could not be done easily in this area. I then put a similar incision in the right upper quadrant and was able to create insufflation. A 5 mm trocar was then placed into the left upper quadrant under Optiview. The camera identified significant adhesions all throughout the abdomen. The camera was used to separate some adhesions enough to create a window for another port. A 12 mm trocar was then placed in the left lower quadrant. Extensive lysis of adhesions was performed for greater than 90 minutes. There was a small bowel and 1 of 3 hernias identified. Meticulous and difficult dissection was performed to take down the small bowel and the hernia sac. Hernia sac was passed off. While taking down adhesions, it was necessary to put a second 5 mm trocar between the other 2 trocars in the left hemiabdomen. A 6 inch round Ventralight mesh was then obtained and placed through the left lower quadrant. Secure strap was used to secure the mesh over the hernias. The millimeter trocar was then removed and the site was closed with 0 Vicryl in a Siddhartha-Olman in a [id number] fashion. Insufflation was removed and trocars were removed. Skin was closed with 4-0 Monocryl in interrupted fashion. Skin glue was applied. Patient tolerated procedure well.
[2023-10-06] MEDS: metoprolol tartrate 1 mg/1 mL SDV 5 mL 5 MG (10:40)
[2023-10-06] MEDS: hyDRALAzine 20 mg/mL INJ 1 mL 5 MG IVP (10:40)
--- NOTE | 2023-10-06 10:43 | ANE.PACU2 ---
Inpatient post-anesthesia follow up: Airway intact: Yes Vital signs: Temperature 97.9 F Pulse Rate 59 Respiratory Rate 17 Blood Pressure 160/93 Pulse Oximetry 95 Oxygen Delivery Me thod Room Air Oxygen Flow Rate 6 Fraction of Inspir ed Oxygen Hydration adequate: Yes Nausea and vomiting: No Pain level: 3 Mental status: Baseline
[2023-10-06 11:46] LABS: Glucose Point of Care 176 mg/dL (70-110)
[2023-10-06] MEDS: sodium chloride 0.9% 1,000 ML 100 ML IV (12:20)
[2023-10-06] MEDS: ondansetron 2 mg/ML SDV 2 mL 4 MG IVP (12:21)
[2023-10-06] MEDS: HYDROmorphone 1 mg/mL INJ 1 mL IVP ×4 (12:21→22:52)
[2023-10-06] MEDS: HYDROcodone-acetaminophen 7.5-325 mg Tablet 1 TAB PO (14:07)
[2023-10-06] MEDS: heparin 5,000 unit/mL INJ 1 mL 5000 UNIT SUBCUT (14:07)
[2023-10-06] MEDS: metoprolol tartrate 25 mg Tablet PO (19:05)
[2023-10-06] MEDS: atorvastatin 40 mg Tablet PO (20:01)
[2023-10-07] VITALS (12 sets, daily range): BP systolic 140–159; BP diastolic 81–93; PULSE 71–80; RESP 16–18; TEMP 36.4–36.8; O2SAT 92–97
[2023-10-07] MEDS: sodium chloride 0.9% 1,000 ML 100 ML IV ×3 (01:00→20:17)
[2023-10-07] MEDS: heparin 5,000 unit/mL INJ 1 mL 5000 UNIT SUBCUT ×2 (01:02→15:11)
[2023-10-07] MEDS: HYDROmorphone 1 mg/mL INJ 1 mL IVP ×4 (03:47→21:22)
[2023-10-07] MEDS: piperacillin-tazobactam 3.375 GM in sodium chloride 0.9% (plus) 50 ML IV ×3 (03:49→20:17)
[2023-10-07 04:59] LABS: Basophils % 0.3 %; Eosinophils % 0.1 %; Hematocrit 37.3 % (37-53); Lymphocytes # 1.3 10^3/uL (0.8-4.8); Lymphocytes % 11.5 %; Mean Corpuscular HGB Conc 33.8 g/dL (30-55); Mean Corpuscular Hemoglobin 33.4 pg (27-33); Mean Corpuscular Volume 98.9 fl (82-101); Mean Platelet Volume 9.7 fL (7.4-10.4); Monocytes # 0.9 10^3/uL (0.2-0.9); Neutrophils # 9.23 10^3/uL (1.8-7.7); Neutrophils % 79.6 %; Nucleated Red Blood Cells % 0 %; Platelet Count 235 10^3/cmm (157-399); Red Blood Count 3.77 10^6/uL (3.85-5.65); White Blood Count 11.59 10^3/uL (3.29-11.43)
[2023-10-07 05:22] LABS: Blood Urea Nitrogen 9 mg/dL (8-23); Carbon Dioxide 22 mmol/L (22-29); Chloride 98 mmol/L (98-107); Glomerular Filtration Rate 97.3 mL/min (90-130); Glucose 100 mg/dL (65-115); Magnesium 1.8 mg/dL (1.7-2.3); Osmolality Calculated 273 mOsm/kg (285-295); Sodium 132 mmol/L (136-145)
[2023-10-07 05:24] LABS: Anion Gap 16.9 (5-19); Potassium 4.9 mmol/L (3.5-5.1)
[2023-10-07] MEDS: metoprolol tartrate 25 mg Tablet PO ×2 (08:26→17:14)
[2023-10-07] MEDS: aspirin 81 mg Chew Tablet PO (08:26)
[2023-10-07] MEDS: lisinopril 20 mg Tablet 40 MG PO (08:26)
[2023-10-07] MEDS: levothyroxine 150 mcg Tablet PO (08:26)
[2023-10-07] MEDS: sertraline 50 mg Tablet PO (08:26)
[2023-10-07] MEDS: HYDROcodone-acetaminophen 7.5-325 mg Tablet 1 TAB PO ×2 (08:26→20:16)
[2023-10-07] MEDS: tamsulosin 0.4 mg Capsule PO (08:26)
--- NOTE | 2023-10-07 12:57 | P.PN_ITS ---
Subjective Subjective: Patient seen and examined. Denies any nausea or emesis. Passing flatus. He does still reports significant abdominal pain however Vitals/I&O/Wt Last Vital Signs Temp 98.3 F 10/07/23 11:30 Pulse 71 10/07/23 11:30 Resp 18 10/07/23 11:30 BP 140/83 10/07/23 11:30 Pulse Ox 94 10/07/23 11:30 O2 Del Method Room Air 10/07/23 11:30 O2 Flow Rate 6 10/06/23 10:32 10/06/23 10/07/23 10/07/23 22:59 06:59 14:59 Intake Total 530 / 1160 1040 / 2200 1410 / 1410 Output Total 300 / 510 200 / 710 250 / 250 Balance 230 / 650 840 / 1490 1160 / 1160 Weight last 48 hrs Weight 274 lb 4.8 oz Weight 265 lb 9.6 oz Physical Exam Narrative: General: No acute distress, awake alert and oriented x 3 Abdomen: Soft, distended, appropriately tender to palpation, no guarding rebound or masses Incisions intact without erythema or exudate Urinary Catheter Management: Reveles: Cath Placed During This Visit: yes Reason for Continuing Indwelling Catheter: Acute Urinary Retention or Obstruction Urinary Catheter Date of Insertion: 10/06/23 Urinary Catheter Time of Insertion: 08:10 Data 10/07/23 04:30 10/07/23 04:30 A&P Assessment and plan (1) Incisional hernia: (2) Partial small bowel obstruction: Plan Postoperative day #1 status post laparoscopic incisional hernia repairs with mesh Pain control Regular diet Ambulate Repeat labs in the morning Possible discharge home in the morning Medical management per hospitalist Attestations Medical Necessity Statement*: per primary Coding Level of Care Code Acute Code for [facility] Diagnoses Incisional hernia K43.2 Partial small bowel obstruction K56.600
--- NOTE | 2023-10-07 14:25 | PC.SOCIAL ---
PG 2 IMM Explained to pt Pg 2 IMM. No questions voiced. Provided pt a copy. Initialed, dated, & timed a copy & placed in chart.
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
[2023-10-07] MEDS: atorvastatin 40 mg Tablet PO (20:18)
[2023-10-08] VITALS: BP 154/81; PULSE 73; RESP 18; TEMP 36.3; O2SAT 92
[2023-10-08 00:38] VITALS: RESP 18
[2023-10-08] MEDS: HYDROmorphone 1 mg/mL INJ 1 mL IVP (00:38)
[2023-10-08] MEDS: heparin 5,000 unit/mL INJ 1 mL 5000 UNIT SUBCUT (00:39)
[2023-10-08] MEDS: piperacillin-tazobactam 3.375 GM in sodium chloride 0.9% (plus) 50 ML IV (04:44)
[2023-10-08 08:00] VITALS: BP 184/97; PULSE 82; RESP 18; TEMP 36.6; O2SAT 95
[2023-10-08 08:28] LABS: Alanine Aminotransferase 31 U/L (0-41); Albumin Level 3.1 g/dL (3.5-5.2); Alkaline Phosphatase 67 U/L (40-130); Blood Urea Nitrogen 6 mg/dL (8-23); Calcium 8.2 mg/dL (8.5-10.5); Carbon Dioxide 21 mmol/L (22-29); Chloride 101 mmol/L (98-107); Globulin 2.8 g/dL (1.3-4.6); Glomerular Filtration Rate 135.6 mL/min (90-130); Glucose 112 mg/dL (65-115); Osmolality Calculated 278 mOsm/kg (285-295); Sodium 135 mmol/L (136-145); Total Bilirubin 0.4 mg/dL (0.15-1.2); Total Protein 5.9 g/dL (6.6-8.7)
[2023-10-08 09:02] LABS: Anion Gap 16.8 (5-19); Aspartate Amino Transferase 31 U/L (0-40); Potassium 3.8 mmol/L (3.5-5.1)
[2023-10-08] MEDS: levothyroxine 150 mcg Tablet PO (09:56)
[2023-10-08] MEDS: metoprolol tartrate 25 mg Tablet PO (09:56)
[2023-10-08] MEDS: lisinopril 20 mg Tablet 40 MG PO (09:56)
[2023-10-08] MEDS: aspirin 81 mg Chew Tablet PO (09:56)
[2023-10-08] MEDS: tamsulosin 0.4 mg Capsule PO (09:57)
[2023-10-08] MEDS: sertraline 50 mg Tablet PO (09:57)
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
== END 2023-10-08 12:56 | disposition home or self-care (01) | DRG 336 ==
LOC: ER 12:57 → MEDSURG 13:23
PROVIDERS: Surgery; Admitting Provider Internal Medicine; Emergency Provider Family Medicine; PCP Nurse Practitioner Family; Visit Provider Student in an Organized Health Care Education/Training Program
PROC: 0WQF4ZZ Repair Abdominal Wall, Percutaneous Endoscopic Approach (ICD-10-PCS; principal; 2023-10-06 08:00)
PROC: 0WUF4JZ Supplement Abdominal Wall with Synthetic Substitute, Percutaneous Endoscopic Approach (ICD-10-PCS; 2023-10-06 08:00)
DX: K43.0 Incisional hernia with obstruction, without gangrene (principal); K56.51 Intestinal adhesions [bands], with partial obstruction; I25.10 Atherosclerotic heart disease of native coronary artery without angina pectoris; I10 Essential (primary) hypertension; E78.5 Hyperlipidemia, unspecified; E03.9 Hypothyroidism, unspecified; E11.9 Type 2 diabetes mellitus without complications; K76.0 Fatty (change of) liver, not elsewhere classified; B19.20 Unspecified viral hepatitis C without hepatic coma
CPT/HCPCS: 36415; 36416; 51702; 71045; 74176; 74177; 80048; 80053; 82962; 83605; 83690; 83735; 84145; 85025; 85610; 87040; 88302; 93005; 93010; 96361; 96372; 96374; 96375; 96376; 99285; J0330; J0360; J1100; J1170; J1644; J2270; J2371; J2405; J2543; J2704; J3010; J3490; J7030; Q9967

== ENCOUNTER → 2023-10-16 14:22 | Outpatient (BNVA) | payer MEDICARE, SELFPAY | PROVIDERS: PCP Nurse Practitioner Family; Visit Provider Surgery | DX: Z98.890 Other specified postprocedural states (principal) | CPT/HCPCS: 99024 ==

== ENCOUNTER → 2024-03-19 10:37 | Outpatient (BNVA) | payer MEDICARE, SELFPAY | PROVIDERS: PCP Nurse Practitioner Family; Visit Provider Surgery | DX: R11.2 Nausea with vomiting, unspecified; K21.9 Gastro-esophageal reflux disease without esophagitis; R10.32 Left lower quadrant pain | CPT/HCPCS: 99214 ==

== ENCOUNTER 2024-04-08 09:27 | Day surgery (SDC) | payer MEDICARE, SELFPAY ==
[2024-04-08 09:42] VITALS: BP 176/94; PULSE 89; RESP 18; TEMP 36.7; O2SAT 95; BMI 35.2
[2024-04-08] MEDS: sodium chloride 0.9% 1,000 ML 30 ML IV (09:51)
[2024-04-08 09:53] LABS: Glucose Point of Care 135 mg/dL (70-110)
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
--- NOTE | 2024-04-08 10:46 | W.PM.OPSUD ---
Surgery/Procedure H&P Update DATE OF PROCEDURE: April 08, 2024 DATE H&P PERFORMED: 03/19/24 H&P UPDATE INFORMATION: I have reviewed H&P completed within last 30 days, I have examined patient prior to procedure and No changes to prior documentation PLANNED PROCEDURE: Operation Date: 04/08/24 10:30 Proposed Procedures p EGD 20120, 55868, G0105 ,R10.9, R11.2 K21.9(Not Applicable) - DO sophia Frias Colonoscopy(Not Applicable) - Ruben Domínguez DO
[2024-04-08 11:14] VITALS: BP 177/97; PULSE 85; RESP 16; TEMP 36.2; O2SAT 92
--- NOTE | 2024-04-08 11:27 | ANE.PACU2 ---
Inpatient post-anesthesia follow up: Airway intact: Yes Vital signs: Temperature 97.2 F Pulse Rate 85 Respiratory Rate 16 Blood Pressure 177/97 Pulse Oximetry 92 Oxygen Delivery Me thod Room Air Oxygen Flow Rate Fraction of Inspir ed Oxygen Hydration adequate: Yes Nausea and vomiting: No Pain level: 1 Mental status: Baseline
[2024-04-08 11:35] VITALS: BP 146/64; PULSE 75; RESP 16; O2SAT 96
== END 2024-04-08 11:45 | disposition home or self-care (01) ==
PROVIDERS: PCP Nurse Practitioner Family; Visit Provider Surgery
PROC: 0DJ08ZZ Inspection of Upper Intestinal Tract, Via Natural or Artificial Opening Endoscopic (ICD-10-PCS; CPT 43235; principal; 2024-04-08 10:30)
PROC: 0DJD8ZZ Inspection of Lower Intestinal Tract, Via Natural or Artificial Opening Endoscopic (ICD-10-PCS; CPT 45378; 2024-04-08 10:30)
DX: Z12.11 Encounter for screening for malignant neoplasm of colon (principal); R10.9 Unspecified abdominal pain; R11.2 Nausea with vomiting, unspecified; K21.00 Gastro-esophageal reflux disease with esophagitis, without bleeding; K64.8 Other hemorrhoids; D12.5 Benign neoplasm of sigmoid colon; D12.3 Benign neoplasm of transverse colon; K29.50 Unspecified chronic gastritis without bleeding; J44.9 Chronic obstructive pulmonary disease, unspecified; G47.30 Sleep apnea, unspecified; I25.10 Atherosclerotic heart disease of native coronary artery without angina pectoris; Z95.5 Presence of coronary angioplasty implant and graft; I10 Essential (primary) hypertension; I25.2 Old myocardial infarction; Z86.19 Personal history of other infectious and parasitic diseases; E03.9 Hypothyroidism, unspecified; E78.5 Hyperlipidemia, unspecified; Z87.891 Personal history of nicotine dependence
CPT/HCPCS: 36416; 43239; 45385; 82962; 88305; 88309; 88342; J2704; J7030

== ENCOUNTER → 2024-04-23 09:14 | Outpatient (BNVA) | payer MEDICARE, SELFPAY | PROVIDERS: PCP Nurse Practitioner Family; Visit Provider Surgery | DX: Z09 Encounter for follow-up examination after completed treatment for conditions other than malignant neoplasm (principal); R11.2 Nausea with vomiting, unspecified; R10.9 Unspecified abdominal pain; K21.00 Gastro-esophageal reflux disease with esophagitis, without bleeding | CPT/HCPCS: 99214 ==

== ENCOUNTER → 2024-06-25 09:55 | Outpatient (BNVA) | payer MEDICARE, SELFPAY | PROVIDERS: PCP Nurse Practitioner Family; Visit Provider Internal Medicine | DX: E78.2 Mixed hyperlipidemia; E11.40 Type 2 diabetes mellitus with diabetic neuropathy, unspecified; I25.10 Atherosclerotic heart disease of native coronary artery without angina pectoris; Z79.890 Hormone replacement therapy; Z79.4 Long term (current) use of insulin | CPT/HCPCS: 99204 ==

== ENCOUNTER 2025-01-28 13:54 | Emergency (ER) | payer MEDICARE, SELFPAY ==
--- NOTE | 2025-01-28 13:59 | ECG_ITS ---
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 Measurements Intervals [place] Rate: 70 P: 55 ID: [id number] QRS: 36 QRSD: 80 T: 13 QT: 359 QTc: 389 Interpretive Statements SINUS RHYTHM Compared to ECG 10/04/2023 17:11:43 No significant changes Electronically Signed On 01-30-2025 07:43:38 CDT by Patrick Alba M.D. [email or web address]
[2025-01-28 14:01] VITALS: BP 205/99; PULSE 73; RESP 18; TEMP 36.6; O2SAT 96; BMI 38.0
--- NOTE | 2025-01-28 16:05 | XRR_ITS ---
PROCEDURE INFORMATION: Exam: XR Chest Exam date and time: 01/28/2025 4:32 PM Age: 64 years old Clinical indication: Chest wall pain; Additional info: General chest pain x 1 day TECHNIQUE: Imaging protocol: Radiologic exam of the chest. Views: 1 view. COMPARISON: CR XR chest 2V* [id number] 12/06/2023 12:58 PM FINDINGS: Lungs: Unremarkable. No consolidation. Pleural spaces: Unremarkable. No pleural effusion. No pneumothorax. Heart/Mediastinum: Unremarkable. No cardiomegaly. Bones/joints: Unremarkable. XR/XR chest 1V portable [id number] IMPRESSION: No acute cardiopulmonary findings.
[2025-01-28 16:11] VITALS: BP 160/96; PULSE 69; RESP 16; O2SAT 98
[2025-01-28 16:24] LABS: Basophils % 0.7 %; Eosinophils # 0.1 10^3/uL (0.0-0.8); Eosinophils % 1.6 %; Hematocrit 39.5 % (37-53); Lymphocytes # 0.9 10^3/uL (0.8-4.8); Lymphocytes % 15.4 %; Mean Corpuscular HGB Conc 34.9 g/dL (30-55); Mean Corpuscular Hemoglobin 32.5 pg (27-33); Mean Corpuscular Volume 92.9 fl (82-101); Mean Platelet Volume 9.8 fL (7.4-10.4); Monocytes # 0.4 10^3/uL (0.2-0.9); Monocytes % 7.5 %; Neutrophils # 4.23 10^3/uL (1.8-7.7); Neutrophils % 74.3 %; Nucleated Red Blood Cells % 0 %; Platelet Count 161 10^3/cmm (157-399); Red Blood Count 4.25 10^6/uL (3.85-5.65); Red Cell Distribution Width 12.9 % (12.1-15.1)
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
[2025-01-28 16:31] VITALS: BP 155/87; PULSE 64; RESP 16
[2025-01-28 16:43] LABS: Troponin(5th) Baseline 13 ng/L (0-15)
[2025-01-28 17:01] VITALS: BP 155/85; PULSE 71; RESP 16
[2025-01-28 17:05] LABS: Alanine Aminotransferase 59 U/L (0-41); Albumin Level 3.9 g/dL (3.5-5.2); Alkaline Phosphatase 72 U/L (40-130); Anion Gap 15.7 (5-19); Aspartate Amino Transferase 49 U/L (0-40); Blood Urea Nitrogen 17 mg/dL (8-23); Calcium 8.4 mg/dL (8.5-10.5); Carbon Dioxide 25 mmol/L (22-29); Chloride 101 mmol/L (98-107); Globulin 2.3 g/dL (1.3-4.6); Glomerular Filtration Rate 84.7 mL/min (90-130); Glucose 115 mg/dL (65-115); Lipase 21 U/L (13-60); NT Pro B Type Natriuretic Pept 105 pg/mL (0-125); Osmolality Calculated 288 mOsm/kg (285-295); Potassium 3.7 mmol/L (3.5-5.1); Sodium 138 mmol/L (136-145); Total Bilirubin 0.4 mg/dL (0.15-1.2); Total Protein 6.2 g/dL (6.6-8.7)
[2025-01-28 17:30] VITALS: BP 155/85; PULSE 78; RESP 16; O2SAT 99
== END 2025-01-28 17:31 | disposition home or self-care (01) ==
PROVIDERS: Emergency Provider Student in an Organized Health Care Education/Training Program; PCP Family Medicine
DX: R07.9 Chest pain, unspecified (principal); I10 Essential (primary) hypertension; Z87.891 Personal history of nicotine dependence; E78.5 Hyperlipidemia, unspecified
CPT/HCPCS: 36415; 71045; 80053; 83690; 83880; 84484; 85025; 93005; 99285

== ENCOUNTER 2025-03-10 07:14 | Outpatient (CLI) | payer MEDICARE, SELFPAY ==
[2025-03-10 07:31] VITALS: PULSE 82; RESP 18; O2SAT 97
[2025-03-10] MEDS: albuterol 2.5 mg/3 mL Neb INHALATION (07:31)
== END 2025-03-10 07:15 | disposition home or self-care (01) ==
PROVIDERS: PCP Family Medicine; Visit Provider Nurse Practitioner Family
DX: R06.09 Other forms of dyspnea (principal); R94.2 Abnormal results of pulmonary function studies
CPT/HCPCS: 94060; 94726; 94729; J7613

== ENCOUNTER 2025-03-11 12:27 | Outpatient (CLI) | payer MEDICARE, SELFPAY ==
--- NOTE | 2025-03-11 12:30 | ECG_ITS ---
[employer] Test Date: 2025-03-11 Pat Name: Db Mcdonald Department: Room: Gender: Male [employer]ice [employer] Att[employer]: : 1960 Requested By: Suzan Adan Order Number: [id number] Emelyn MD: JENNIFER GARCIAS Interpretive Statements Lung unchanged pre/post procedure; Intraprocedure shortess of breath; Symptoms resoled by discharge EXERCISE DATA: The patient was exercised by Ceasar protocol. Baseline heart rate was 85 beats per minute. Baseline blood pressure was 179/92 millimeters of mercury. Target heart rate was 155 beats per minute. Maximum heart rate achieved was 163, which was 105% of the target heart rate. Maximum blood pressure was 179/110 millimeters of mercury. Total exercise time was 4 minutes 44-second. Maximum METs achieved was 7.0, maximum VO2 was 24.5. The reason for ending the test was maximum effort achieved. The patient complained of shortness of breath during the stress test, which then resolved at the end of the test. ELECTROCARDIOGRAM: BASELINE: Showed sinus rhythm, normal axis, no significant ST-T changes at the baseline noted. EXERCISE: At the peak exercise level, no significant ST-T changes suggestive of ischemia noted. RECOVERY: During the recovery period, heart rate dropped appropriately. No significant ST-T changes in the recovery suggestive of ischemia noted. CONCLUSION: 1. Exercise capacity poor. 2. Heart rate response was tachycardiac. 3. Blood pressure response was appropriate. 4. Symptoms not suggestive of ischemia. 5. Electrocardiogram portion of the stress test was not suggestive of ischemia. 6. Nuclear scan will be documented separately. Electronically Signed On 03-21-2025 17:21:50 CDT by JENNIFER GARCIAS [email or web address]
[2025-03-11 12:34] VITALS: BMI 36.6
[2025-03-11 13:06] VITALS: BP 169/93; PULSE 100
== END 2025-03-11 12:28 | disposition home or self-care (01) ==
LOC: CDL 12:28
PROVIDERS: PCP Family Medicine; Visit Provider Nurse Practitioner Family
DX: R07.9 Chest pain, unspecified (principal); R00.0 Tachycardia, unspecified
CPT/HCPCS: 93017

== ENCOUNTER → 2025-04-20 11:55 | Outpatient (BNVA) | payer MEDICARE, SELFPAY | PROVIDERS: PCP Family Medicine; Visit Provider Family Medicine | DX: E03.9 Hypothyroidism, unspecified (principal); E11.9 Type 2 diabetes mellitus without complications; Z51.81 Encounter for therapeutic drug level monitoring | CPT/HCPCS: 80053; 83036; 84439; 84443; 85025 ==

== ENCOUNTER → 2025-08-09 12:56 | Outpatient (BNVA) | payer MEDICARE, SELFPAY | PROVIDERS: PCP Family Medicine; Visit Provider Family Medicine | DX: Z51.81 Encounter for therapeutic drug level monitoring (principal); Z13.6 Encounter for screening for cardiovascular disorders; I10 Essential (primary) hypertension; E11.9 Type 2 diabetes mellitus without complications | CPT/HCPCS: 80053; 80061; 83036; 85025 ==

== ENCOUNTER → 2025-09-10 12:00 | Outpatient (BNVA) | payer MEDICARE, SELFPAY | PROVIDERS: PCP Family Medicine; Visit Provider Internal Medicine Cardiovascular Disease | DX: R07.9 Chest pain, unspecified (principal); R00.1 Bradycardia, unspecified | CPT/HCPCS: 93005 ==